=== PATIENT | female | born 2000 | race Caucasian/White ===

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

== ENCOUNTER → 2021-02-27 | Outpatient (CLI) | payer OTHER ==
[2021-02-27 18:36] LABS: African American GFR (CKD) 149.6 (60.0-200.0); Albumin 4.3 g/dL (3.8-4.9); Albumin/Globulin Ratio 1.57 (1.60-3.17); Anion Gap 13.2 mmol/L (4.00-12.00); BUN/Creat Ratio 27.64 Ratio (12.00-20.00); Blood Urea Nitrogen 17.8 mg/dL (9.0-27.0); Calcium 9.4 mg/dL (8.7-10.3); Carbon Dioxide 19.4 mmol/L (21.6-31.8); Estradiol 44.2 pg/mL; Follicle Stimulating Hormone 4.1 mIU/mL; Globulin 2.8 g/dL (1.6-3.3); Non-African American GFR(CKD) 129.1 (60.0-200.0); Potassium 4.1 mmol/L (3.5-5.5); Prolactin 24.1 ng/mL (2.800-29.200); Total Bilirubin 0.2 mg/dL (0.30-1.20); Total Protein 7.1 g/dL (6.2-8.2)
[2021-03-02 12:56] LABS: ACTH 26.9 pg/mL (0.00-45.99)
== END | disposition home or self-care (01) ==
LOC: LABWHC1 08:46
DX: E03.9 Hypothyroidism, unspecified (principal); E27.40 Unspecified adrenocortical insufficiency
CPT/HCPCS: 36415; 80053; 82024; 82533; 82670; 83001; 83002; 84146; 84305; 84432; 84443; 86376

== ENCOUNTER 2021-03-13 21:25 | Observation (INO) | payer OTHER ==
--- NOTE | 2021-03-13 22:44 | ED ---
Chest Pain HPI - General Chief Complaint: Chest Pain Stated Complaint: Chest pain,SOB Time Seen by Provider: 03/13/21 22:42 Source: patient, RN notes reviewed, old records reviewed Mode of arrival: wheelchair Limitations: no limitations - History of Present Illness Initial Comments: This is a 20-year-old female to the emergency room today. Patient felt near syncopal palpitations earlier in the day like her heart rate was dropping low after having episodes of it being high. 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 Patient is otherwise no new medications recent travel history sick contacts no fevers. No other. Symptoms today MD Complaint: chest pain (Palpitations), other (Elevated heart rate as well as low heart rate) -: hour(s) Onset: during rest Pain Location: substernal Severity scale (1-10): 3 Consistency: intermittent Improves With: nothing Worsens With: nothing Anginal Symptoms: dyspnea Other Symptoms: palpitations Treatments Prior to Arrival: none - Related Data Home Medications Medication Instructions Recorded Confirmed No Known Home Medications 03/13/21 03/13/21 Allergies Allergy/AdvReac Type Severity Reaction Status Date / Time No Known Allergies Allergy Verified 03/13/21 23:17 Review of Systems ROS Statement: Those systems with pertinent positive or pertinent negative responses have been documented in the HPI. ROS Other: All systems not noted in ROS Statement are negative. EKG Findings - EKG Comments: EKG Findings:: EKG is sinus 79 NH 146 QRS 84 QTc 428 Past Medical History Past Medical History: No Reported History Additional Past Medical History / Comment(s): Covid 08/10 History of Any Multi-Drug Resistant Organisms: None Reported Past Surgical History: Tonsillectomy Additional Past Surgical History / Comment(s): lymph node removed Past Psychological History: No Psychological Hx Reported Smoking Status: Never smoker Past Alcohol Use History: None Reported Past Drug Use History: None Reported General Exam Limitations: no limitations General appearance: alert, in no apparent distress Head exam: Present: atraumatic, normocephalic, normal inspection Eye exam: Present: normal appearance, PERRL, EOMI. Absent: scleral icterus, conjunctival injection, periorbital swelling ENT exam: Present: normal exam, mucous membranes moist Neck exam: Present: normal inspection. Absent: tenderness, meningismus, lymphadenopathy Respiratory exam: Present: normal lung sounds bilaterally. Absent: respiratory distress, wheezes, rales, rhonchi, stridor Cardiovascular Exam: Present: bradycardia, tachycardia, irregular rhythm, normal heart sounds. Absent: systolic murmur, diastolic murmur, rubs, gallop, clicks GI/Abdominal exam: Present: soft, normal bowel sounds. Absent: distended, tenderness, guarding, rebound, rigid Extremities exam: Present: normal inspection, full ROM, normal capillary refill. Absent: tenderness, pedal edema, joint swelling, calf tenderness Back exam: Present: normal inspection Neurological exam: Present: alert, oriented X3, CN II-XII intact Psychiatric exam: Present: normal affect, normal mood Skin exam: Present: warm, dry, intact, normal color. Absent: rash Course Vital Signs 03/13/21 03/13/21 21:29 23:00 Temperature 98.8 F Pulse Rate 112 H 88 Respiratory 18 22 Rate Blood Pressure 126/88 124/74 O2 Sat by Pulse 100 97 Oximetry - Reevaluation(s) Reevaluation #1: 03/14/21 00:49 Medical record is reviewed Reevaluation #2: 03/14/21 00:49 patient currently showing PVCs every other beat. Resting comfortably Reevaluation #3: 03/14/21 00:49 Patient informed results and questions answered Reevaluation #4: 03/14/21 00:49 Patient's in no acute distress - Consultations Consultation #1: Spoke with Dr. Birch who agrees to admit this patient Chest Pain MDM - MDM 20-year-old female to the emergency department today. Patient presents today for evaluation regards to arrhythmia palpitations. Patient has episodes of tachycardia as well as bradycardia here in the ER from over 100 to less than 50. Currently patient is having PVCs every other beat and symptomatic. Patient be admitted for cardiology evaluation Disposition Clinical Impression: Atypical chest pain, PVC (premature ventricular contraction), Near syncope, Palpitations, Tachycardia, Bradycardia Disposition: ADMITTED IP TO THIS HOSP Condition: Good Is patient prescribed a controlled substance at d/c from ED?: No Referrals: Sky Birch MD [Primary Care Provider] - 1-2 days
--- NOTE | 2021-03-13 23:11 | XR ---
EXAMINATION TYPE: XR chest 1V portable DATE OF EXAM: 03/13/2021 COMPARISON: 12/28/2020 HISTORY: Short of breath TECHNIQUE: FINDINGS: Heart and mediastinum are normal. Lungs are clear. Diaphragm is normal. Bony thorax is inta ct. IMPRESSION: Normal chest. No change
[2021-03-13] MEDS ORDERED: SODIUM CHLORIDE 0.9% 1,000 ML IV STA (23:19)
[2021-03-13 23:43] LABS: Basophils # (A) 0.1 k/uL (0-0.2); Basophils % (A) 0 %; Eosinophils # (A) 0.1 k/uL (0-0.7); Eosinophils % (A) 1 %; HCT 41.6 % (34.0-46.0); Lymphocytes # (A) 3.9 k/uL (1.0-4.8); Lymphocytes % (A) 34 %; MCH 27.9 pg (25.0-35.0); MCHC 33.7 g/dL (31.0-37.0); MCV 82.9 fL (80.0-100.0); Mean Platelet Volume 7.1; Monocytes # (A) 0.4 k/uL (0-1.0); Monocytes % (A) 3 %; Neutrophils # (A) 6.8 k/uL (1.3-7.7); Neutrophils % (A) 60 %; Platelet Count 376 k/uL (150-450); RBC 5.02 m/uL (3.80-5.40); RDW 13.4 % (11.5-15.5); WBC 11.4 k/uL (4.0-11.0)
[2021-03-14 00:06] LABS: ALT 17 U/L (4-34); AST 22 U/L (14-36); African American GFR (CKD) >90 (>60 ml/min/1.73 sqM); Albumin 4.4 g/dL (3.5-5.0); Alkaline Phosphatase 46 U/L (38-126); Anion Gap 10 mmol/L; Blood Urea Nitrogen 17 mg/dL (7-17); Calcium 9.8 mg/dL (8.4-10.2); Carbon Dioxide 23 mmol/L (22-30); Chloride 104 mmol/L (98-107); Glucose 93 mg/dL (74-99); Magnesium 2.1 mg/dL (1.6-2.3); Non-African American GFR(CKD) >90 (>60 ml/min/1.73 sqM); Potassium 4.2 mmol/L (3.5-5.1); Sodium 137 mmol/L (137-145); Total Bilirubin 0.2 mg/dL (0.2-1.3); Total Protein 7.6 g/dL (6.3-8.2)
[2021-03-14 00:09] LABS: INR 1.1 (<1.2)
[2021-03-14 00:10] LABS: Partial Thromboplastin Time 25.2 sec (22.0-30.0); Prothrombin Time 11.7 sec (9.0-12.0)
[2021-03-14 00:21] LABS: T4, Free (Free Thyroxine) 0.89 ng/dL (0.78-2.19)
[2021-03-14] MEDS ORDERED: SODIUM CHLORIDE 0.9% 1,000 ML IV SCH (00:45)
[2021-03-14] MEDS ORDERED: NITROGLYCERIN SL TABS 0.4 MG TAB SUBLINGUAL PRN (00:45)
[2021-03-14 09:33] VITALS: BP 108/72; PULSE 49; RESP 16; TEMP 98.1
--- NOTE | 2021-03-14 10:18 | P.CRDCN ---
History of Present Illness Consult date: 03/14/21 Chief complaint: Palpitation History of present illness: This is a pleasant 20-year-old female patient was tach most recently was James thyroiditis presented to the emergency department complaining of intermittent episodes of palpitation. The patient stated that for the last 24 hours only she has been experiencing intermittent episodes of palpitation without associated symptoms of dizziness or lightheadedness or any presyncope or syncope. No symptoms of chest pain and no symptoms of chest discomfort. She never had these palpitations before. She has no family history of sudden cardiac arrest or syncope. The patient was diagnosed recently with James thyroiditis and she was told no need to be on any thyroid replacement therapy. As a matter of fact her TSH is elevated and hurts free T4 seems to be within normal limits. 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 The EKG showed sinus rhythm with ventricular bigeminy which seems to be frequent. She stated that normally she keeps herself hydrated and she does not drink a lot of caffeine. The rest of her workup including chest x-ray came in to be unremarkable. 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 History of Any Multi-Drug Resistant Organisms: None Reported Past Surgical History: Tonsillectomy Additional Past Surgical History / Comment(s): lymph node removed Past Anesthesia/Blood Transfusion Reactions: No Reported Reaction Past Psychological History: No Psychological Hx Reported Smoking Status: Never smoker Past Alcohol Use History: None Reported Past Drug Use History: None Reported Medications and Allergies Home Medications Medication Instructions Recorded Confirmed Type No Known Home Medications 03/13/21 03/13/21 History Allergies Allergy/AdvReac Type Severity Reaction Status Date / Time No Known Allergies Allergy Verified 03/13/21 23:17 Physical Exam Vitals: Vital Signs Temp Pulse Pulse Resp BP BP Pulse Ox 03/14/21 07:00 98.1 F 49 L 16 108/72 98 03/14/21 02:00 22 03/14/21 00:51 87 22 128/74 98 03/13/21 23:00 88 22 124/74 97 10/22/21 21:29 98.8 F 112 H 18 126/88 100 Intake and Output 03/13/21 03/14/21 03/14/21 22:59 06:59 14:59 Other: Voiding Method Toilet Toilet # Voids 1 Weight 111.584 kg 111.584 kg - Constitutional General appearance: no acute distress - Respiratory Respiratory: bilateral: CTA - Cardiovascular Rhythm: regular Heart sounds: normal: S1, S2 Results 03/13/21 23:25 03/13/21 23:25 Cardiac Enzymes 03/13/21 03/13/21 03/14/21 Range/Units 23:25 23:25 03:02 AST 22 (14-36) U/L Troponin I <0.012 <0.012 (0.000-0.034) ng/mL 03/14/21 Range/Units 05:41 AST (14-36) U/L Troponin I <0.012 (0.000-0.034) ng/mL Coagulation 03/13/21 Range/Units 23:25 PT 11.7 (9.0-12.0) sec APTT 25.2 (22.0-30.0) sec CBC 03/13/21 Range/Units 23:25 WBC 11.4 H (4.0-11.0) k/uL RBC 5.02 (3.80-5.40) m/uL Hgb 14.0 (11.4-16.0) gm/dL Hct 41.6 (34.0-46.0) % Plt Count 376 (150-450) k/uL Comprehensive Metabolic Panel 03/13/21 Range/Units 23:25 Sodium 137 (137-145) mmol/L Potassium 4.2 (3.5-5.1) mmol/L Chloride 104 (98-107) mmol/L Carbon Dioxide 23 (22-30) mmol/L BUN 17 (7-17) mg/dL Creatinine 0.67 (0.52-1.04) mg/dL Glucose 93 (74-99) mg/dL Calcium 9.8 (8.4-10.2) mg/dL AST 22 (14-36) U/L ALT 17 (4-34) U/L Alkaline Phosphatase 46 (38-126) U/L Total Protein 7.6 (6.3-8.2) g/dL Albumin 4.4 (3.5-5.0) g/dL Current Medications Generic Name Dose Route Start Last Admin Trade Name Freq PRN Reason Stop Dose Admin Sodium Chloride 1,000 mls @ 20 mls/hr 03/14/21 00:45 03/14/21 02:16 Saline 0.9% IV Not Given .Q24H JOSE Nitroglycerin 0.4 mg 03/14/21 00:45 Nitroglycerin Sl Tabs 0.4 Mg Tab SUBLINGUAL Q5M PRN Chest Pain Intake and Output 03/13/21 03/14/21 03/14/21 22:59 06:59 14:59 Other: Voiding Method Toilet Toilet # Voids 1 Weight 111.584 kg 111.584 kg 03/13/21 23:25 03/13/21 23:25 Assessment and Plan Assessment: Assessment #1 James thyroiditis #2 ventricular bigeminy Plan #1 the echo was reviewed and showed normal biventricular function without any evidence of right ventricular dilation #2 the patient would like to be discharged home. #3 she potentially can be discharged home on event monitor #4 follow-up with the patient as an outpatient to assess the frequency of the palpitation
--- NOTE | 2021-03-14 14:14 | HP ---
HISTORY AND PHYSICAL CHIEF COMPLAINT: Bradycardia and chest discomfort with weakness. HISTORY OF PRESENT ILLNESS: This is the first known admission for this 20-year-old white female. She has noticed that her heart was slowing down, then it would speed up. She had slight discomfort in the epigastric area, but no cough, hemoptysis, orthopnea, PND, etc. She came to the emergency room, where her pulse was dropping to around 40 with sinus rhythm and then jumping up to over 100. She also had the episodes of bigeminal PVCs. There is no chest pain. She has never had a problem like this before. She has never had a murmur, rheumatic fever, syncope, orthostatic dizziness, etc. She has had no pleuritic pain, cough, hemoptysis, swelling in either leg, etc. She has recently been diagnosed with James's thyroiditis. She has never had any history of any heart problems such as myocarditis, pericarditis, etc. REVIEW OF SYSTEMS: She has had no focal neurologic deficits, trouble with the vision or the hearing, history otherwise. She has never had a murmur. She has not had abdominal pain, nausea, melena, hematochezia, renal disease, hematuria, dysuria, diabetes, etc. Past medical history, family history, and personal and social histories are all essentially unremarkable otherwise. She is currently on vitamin D, ibuprofen, Flonase and ProAir. She is a nonsmoker and drinker. PHYSICAL EXAMINATION: Blood pressure is 128/70 with a pulse of 64 and regular. Respirations were 15. She is afebrile. In general she appears to be uncomfortable and in no acute distress. Skin color is normal. Skin is warm and dry. Lymph nodes are not enlarged. Head, ears, eyes, nose, mouth and throat were normal. There were no carotid bruits. Neck veins are not distended. The chest is clear to auscultation and percussion. The cardiac exam demonstrated normal sinus rhythm with PVCs. The abdomen is soft and nontender. Extremities are normal. Neurologically she is intact. She is admitted to the hospital with diagnoses: 1. Tachy-bernie syndrome with frequent PVCs. 2. James's thyroiditis. PLAN: 1. Bedrest. 2. IV fluids. 3. Echocardiogram. 4. Cardiology consult. 5. Free T4. MMODL / IJN: [id number] /
--- NOTE | 2021-03-15 13:02 | DS ---
DISCHARGE SUMMARY CHIEF COMPLAINT: Slow and then fast heart rate. HISTORY OF PRESENT ILLNESS AND PHYSICAL EXAMINATION: Details of this lady's history and physical can be found in the initial workup. LABORATORY STUDIES: While she was in the hospital she had laboratory studies, details of which can be found in the laboratory section of her chart. COURSE IN THE HOSPITAL: After admission she was placed on bedrest and started on intravenous fluids and telemetry. She had no significant symptoms. Her pulse had gone down as low as 40 beats per minute and up as high as 120. She also had intermittent PVCs and occasionally they were bigeminal. She was doing well and had no further symptoms and Cardiology felt that she could be discharged. She will be seen as an outpatient and will have an event monitor applied. FINAL DIAGNOSIS: 1. Tachy-bernie syndrome. 2. Frequent PVCs with bigeminy. 3. James's thyroiditis. OPERATIONS: None. CONSULTATION: Cardiology. She is improved. MMKELECHIL / JOSE ARMANDON: [id number] /
== END 2021-03-14 15:27 | disposition home or self-care (01) ==
LOC: EC 21:25 → 6NMEDSUR 03-14 00:45
PROVIDERS: ADMIT Family Medicine; ATTEND Family Medicine
DX: I49.5 Sick sinus syndrome (principal); E06.3 Autoimmune thyroiditis; Z20.822 Contact with and (suspected) exposure to COVID-19; Z86.16 Personal history of COVID-19
CPT/HCPCS: 99285; 36415; 93005; 93306; 85379 ×2; 84439; 83880; 80053; 83735; 84100; 84443; 84484 ×2; 85025; 85610; 85730; 87635; 71045; G0378

== ENCOUNTER → 2021-04-23 | Outpatient (CLI) | payer OTHER | END | disposition home or self-care (01) | LOC: LABWHC1 16:05 | PROVIDERS: ATTEND Obstetrics & Gynecology | DX: O20.0 Threatened abortion (principal) | CPT/HCPCS: 36415; 84702; 86850; 86900; 86901 ==

== ENCOUNTER → 2021-04-27 | Outpatient (CLI) | payer BC, OTHER | END | disposition home or self-care (01) | LOC: LABWHC1 12:41 | PROVIDERS: ATTEND Obstetrics & Gynecology | DX: O20.0 Threatened abortion (principal); Z3A.00 Weeks of gestation of pregnancy not specified | CPT/HCPCS: 36415; 84702; 86850; 86900; 86901 ==

== ENCOUNTER 2021-08-23 21:25 | Outpatient (CLI) | payer BC, OTHER ==
[2021-08-23 22:18] VITALS: BP 127/93; PULSE 86; RESP 16; TEMP 97.6
--- NOTE | 2021-08-24 07:22 | P.MSEPDOC ---
Presenting Problems - Arrival Data Date of Arrival on Unit: 08/23/21 Time of Arrival on Unit: 21:25 Mode of Transport: Ambulatory - Complaint OB-Reason for Admission/Chief Complaint: Vaginal Bleeding Medical History - Information : 1 Para: 0 Term: 0 : 0 Abortions: Spontaneous or Elective: 0 Number of Living Children: 0 - Gestational Age Gestational Age by JANNA (wks/days): 22 Weeks and 5 Days Review of Systems - Review of Systems Constitutional: No problems Breast: No problems ENT: No problems Cardiovascular: No problems Respiratory: No problems Gastrointestinal: No problems Genitourinary: No problems Musculoskeletal: No problems Neurological: No problems Skin: No problems Vital Signs - Temperature Temperature: 97.6 F Temperature Source: Oral - Pulse Pulse Oximetery Pulse Rate: 86 Pulse Assessment Method: Pulse Oximetry - Respirations Respiratory Rate: 16 Oxygen Delivery Method: Room Air O2 Sat by Pulse Oximetry: 98 - Blood Pressure Right Arm Blood Pressure: 127/93 Blood Pressure Mean: 104 Blood Pressure Source: Automatic Cuff Medical Screen Scoring - Assessment - Baby A Baseline FHR: 145-155 Physician Notification - Physician Notified Physician Notified Date: 08/23/21 Physician Notified Time: 21:54 Physician: Steve Willis New Order Received: Yes - Notification Comment Comment: d/c home Maternal Triage Index - Maternal Triage Index Presenting for scheduled procedure w/no complaint: No - Stat/Priority 1 Stat Priority 1: No - Urgent/Priority 2 Urgent Priority 2: No - Prompt/Priority 3 Prompt Priority 3: No - Non-Urgent/Priority 4 Non-Urgent Priority 4: Yes Criteria Met for Priority 4: pt states she had bleeding after BM. resolved. dr willis d/c home with reassurance that probably hemorrhoids. no intercourse till f/u with dr laurent on 08/28/21 Disposition - Disposition OB Disposition: Discharge to home Discharge Date: 08/23/21 Discharge Time: 22:02 I agree with the RN Medical Screening Exam: Yes Case reviewed; plan agreed upon as documented in EMR&OBIX.: Yes Diagnosis: SPOTTING COMPLICATING , SECOND TRIMESTER (Patient presents to labor and delivery with complaints of spotting after having a bowel movement. heart tones are auscultated. Clinical history is suggestive of most likely bleeding hemorrhoid. Is no active bleeding at this time. Patient was discharged follow up with Dr. Laurent for evaluation as an outpatient.)
== END 2021-08-23 22:12 | disposition home or self-care (01) ==
LOC: FBPOP 21:25
PROVIDERS: ATTEND Obstetrics & Gynecology
DX: O26.852 Spotting complicating pregnancy, second trimester (principal); Z3A.22 22 weeks gestation of pregnancy
CPT/HCPCS: 99213

== ENCOUNTER 2021-10-22 14:19 | Inpatient (IN) | payer BC, OTHER ==
[2021-10-22 15:54] LABS: African American GFR (CKD) >90 (>60 ml/min/1.73 sqM); Non-African American GFR(CKD) >90 (>60 ml/min/1.73 sqM)
[2021-10-22 15:55] LABS: Uric Acid 6.8 mg/dL (3.7-7.4)
[2021-10-22 15:58] LABS: Appearance,Urine Cloudy (Clear); Bilirubin,Urine Negative (Negative); Blood,Urine Negative (Negative); Calcium Oxalate Crystals,Urine Moderate /hpf; Color,Urine Yellow; Glucose,Urine (UA) Negative (Negative); Ketones,Urine Negative (Negative); Leukocyte Esterase,Urine Moderate (Negative); Mucus,Urine Moderate /hpf; Nitrite,Urine Negative (Negative); PH, Urine 6.5 (5.0-8.0); Protein,Urine 1+ (Negative); RBC,Urine 1 /hpf (0-5); Specific Gravity,Urine 1.028 (1.001-1.035); Squamous Epithelial Cell,Urine 4 /hpf (0-4); Urobilinogen,Urine <2.0 mg/dL (<2.0); WBC,Urine 3 /hpf (0-5)
[2021-10-22 16:06] LABS: Creatinine,Urine Random 202.3 mg/dL; Protein/Creatinine Ratio,Urine 0.366
[2021-10-22 17:13] LABS: Basophils % (A) 0 %; Eosinophils # (A) 0.1 k/uL (0-0.7); Eosinophils % (A) 1 %; HCT 35.7 % (34.0-46.0); HGB 12.1 gm/dL (11.4-16.0); Lymphocytes # (A) 1.9 k/uL (1.0-4.8); Lymphocytes % (A) 21 %; MCH 29.4 pg (25.0-35.0); MCHC 33.9 g/dL (31.0-37.0); MCV 86.7 fL (80.0-100.0); Monocytes # (A) 0.2 k/uL (0-1.0); Monocytes % (A) 3 %; Neutrophils # (A) 6.8 k/uL (1.3-7.7); Neutrophils % (A) 75 %; Platelet Count 294 k/uL (150-450); RBC 4.12 m/uL (3.80-5.40); RDW 14.7 % (11.5-15.5); WBC 9.1 k/uL (4.0-11.0)
--- NOTE | 2021-10-22 18:22 | P.HPOB ---
History of Present Illness H&P Date: 10/22/21 Chief Complaint: Swelling and elevated blood pressure. This patient is a pleasant 21-year-old 1 para 0 female estimated date of confinement 12/22/2021 estimated gestational age 31-2/7 weeks who presents to labor and delivery after calling the office with complaints of swelling of her hands and feet. Patient did check her blood pressure at home and it was 160/80. She rechecked it was 151/76. Patient contacted the nurse in my office and she was instructed to come to labor and delivery for evaluation of preeclampsia. Patient's care is per Dr. 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 Patient has been seen by maternal medicine and has been following with them as well. Patient denies headache at this time. She denies epigastric pain. Initial blood pressure on admission here was 169/79 however serial blood pressures shoulder be anywhere from 122 -150s over 50s - 70s. Laboratory evaluation shows normal liver function tests. Uric acid was 6.8. She did have 1+ protein on a random urine. heart tones are reassuring. 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 History of Any Multi-Drug Resistant Organisms: None Reported Past Surgical History: Tonsillectomy Additional Past Surgical History / Comment(s): lymph node removed Past Anesthesia/Blood Transfusion Reactions: No Reported Reaction Past Psychological History: No Psychological Hx Reported Smoking Status: Never smoker Past Alcohol Use History: None Reported Past Drug Use History: None Reported Medications and Allergies Home Medications Medication Instructions Recorded Confirmed Type Enoxaparin [Lovenox] 1 injection SQ DAILY 08/23/21 10/22/21 History Pnv No.95/Ferrous Fum/Folic AC 1 tab PO DAILY 08/23/21 10/22/21 History [ Multivitamin Tablet] Levothyroxine Sodium [Synthroid] 200 mcg PO DAILY 10/22/21 10/22/21 History Allergies Allergy/AdvReac Type Severity Reaction Status Date / Time No Known Allergies Allergy Verified 10/22/21 14:41 Exam Intake and Output 10/22/21 10/22/21 10/22/21 06:59 14:59 22:59 Other: Weight 127.006 kg - OBG Physical Exam Abdomen: bowel sounds normal, no diffuse tenderness, no bruit present, no guarding noted, no hepatomegaly, no splenomegaly, no mass Vulva: both: normal Vagina: no discharge Uterus: enlarged Results Result Diagrams: 10/22/21 15:13 10/22/21 15:13 Abnormal Lab Results - Last 24 Hours (Table) 10/22/21 10/22/21 Range/Units 15:00 15:13 Creatinine 0.50 L (0.52-1.04) mg/dL Urine Appearance Cloudy H (Clear) Urine Protein 1+ H (Negative) Ur Leukocyte Esterase Moderate H (Negative) Calcium Oxalate Crystal Moderate H (None) /hpf Urine Mucus Moderate H (None) /hpf Assessment and Plan Assessment: This is a pleasant 21-year-old 1 para 0 female 31-2/7 weeks gestation with gestational hypertension. She does have 1+ protein on a urine specimen and her uric acid is trending upward. I explained to her that at this time her diagnoses gestational hypertension however it is best to admit her for close observation and continued observation for preeclampsia. I am going to give her a dose of Celestone. I'm going to repeat her blood work in the morning ultrasound this evening. We will also continue her Lovenox as she has been taking at home. She understands if that I have concerns that she is developing significant blood pressure elevations or severe preeclampsia she will need to be transferred to a tertiary facility due to her gestational age. I discussed the treatment plan with the patient and her family and they understand reasoning for admission and observation and all questions are answered. (1) 31 to 32 weeks gestation of Current Visit: Yes Status: Acute Code(s): [id number] - SNOMED Code(s): 724768184 (2) Gestational hypertension Current Visit: Yes Status: Acute Code(s): O13.9 - GESTATIONAL HTN W/O SIGNIFICANT PROTEINURIA, UNSP TRIMESTER SNOMED Code(s): 87977252 (3) Factor V Leiden mutation Current Visit: Yes Status: Acute Code(s): D68.51 - ACTIVATED PROTEIN C RESISTANCE SNOMED Code(s): 545484580
[2021-10-22] MEDS: BETAMET ACET-BETAMETH SOD PHOS 6 MG/ML MDV IM SCH (18:28)
--- NOTE | 2021-10-22 19:24 | US ---
EXAMINATION TYPE: US OB >= 14 wk fetus DATE OF EXAM: 10/22/2021 COMPARISON: None CLINICAL HISTORY: Preeclampsia, Patient is 31 weeks and presents with high blood pressure. TECHNIQUE: Transabdominal (TA) GESTATIONAL AGE / DATING Physician Established: (31 weeks/2 days) EDC: 12/22/21 Dates by First Scan: No previous this is first scan here Dates by Current Scan: (32 weeks/1 days) EDC: 12/16/21 SURVEY IUP: Single PLACENTA: Anterior PREVIA: No Previa NACHO: 14.3 cm Normal CERVICAL LENGTH (transabdominal: norm > 3.0cm): 3.7 cm BIOMETRY PRESENTATION: Vertex LIE: Oblique BPD: 8.05 cm 32 weeks / 3 days HC: 29.66 cm 32 weeks / 6 days AC: 27.72 cm 31 weeks / 6 days FL: 6.04 cm 31 weeks / 3 days ESTIMATED WEIGHT IN GRAMS: 1843 grams ESTIMATED WEIGHT IN LBS/OZ: 4 lbs. 1 oz. WEIGHT PERCENTAGE BASED ON ESTABLISHED DATES: 56% HC/AC: 1.07 Normal FL/AC: 22% Normal HEART RATE: 142 bpm RHYTHM: Normal MATERNAL WALL MEASUREMENT: 5.0 cm from skin to anterior uterine wall (if exam limited due to body hab itus). IMPRESSION: 1. Single live intrauterine with calculated ultrasound age of 32 weeks and 1 day, .Addition al information as described above.
[2021-10-22 19:54] VITALS: RESP 16
[2021-10-22] MEDS: LABETALOL 100 MG TAB PO SCH (19:58)
[2021-10-22] MEDS ORDERED: ENOXAPARIN 40 MG/0.4 ML SYRINGE SQ SCH (21:00)
[2021-10-23] MEDS ORDERED: LEVOTHYROXINE 100 MCG TAB PO SCH (06:30)
[2021-10-23 06:43] LABS: Basophils % (A) 0 %; Eosinophils % (A) 0 %; HCT 37.8 % (34.0-46.0); HGB 12.7 gm/dL (11.4-16.0); Lymphocytes # (A) 1.3 k/uL (1.0-4.8); Lymphocytes % (A) 11 %; MCH 29.1 pg (25.0-35.0); MCHC 33.5 g/dL (31.0-37.0); MCV 86.7 fL (80.0-100.0); Mean Platelet Volume 8.6; Monocytes # (A) 0.2 k/uL (0-1.0); Monocytes % (A) 2 %; Neutrophils # (A) 10.4 k/uL (1.3-7.7); Neutrophils % (A) 87 %; Platelet Count 257 k/uL (150-450); RBC 4.36 m/uL (3.80-5.40); RDW 13.8 % (11.5-15.5); WBC 11.9 k/uL (4.0-11.0)
--- NOTE | 2021-10-23 06:48 | P.PN ---
Progress Note - Text Progress Note Date: 10/23/21 Patient is resting overnight without new symptoms. I did start her on labetalol 100 mg by mouth twice a day and blood pressures are markedly improved. Repeat labs are pending. 24-hour urine is in process. Ultrasound shows normal growth and no abnormalities. Plan today is to continue watching her blood pressure and continue 24-hour urine. We will repeat her Celestone later tonight. Estimated discharge either later today or tomorrow morning if she remains without blood pressure problems.
[2021-10-23 06:54] LABS: ALT 20 U/L (4-34); AST 23 U/L (14-36); African American GFR (CKD) >90 (>60 ml/min/1.73 sqM); Blood Urea Nitrogen 10 mg/dL (7-17); Non-African American GFR(CKD) >90 (>60 ml/min/1.73 sqM)
[2021-10-23] MEDS: LABETALOL 100 MG TAB PO SCH ×2 (08:29→18:41)
[2021-10-23] MEDS ORDERED: PRENATAL VIT-IRON-FOLIC ACID 1 EACH TABLET PO SCH (09:00)
[2021-10-23] MEDS: BETAMET ACET-BETAMETH SOD PHOS 6 MG/ML MDV IM SCH (18:04)
[2021-10-23 18:07] VITALS: BP 122/59; PULSE 86; TEMP 98.6
--- NOTE | 2021-10-23 18:25 | P.PN ---
Progress Note - Text Progress Note Date: 10/23/21 Patient is reevaluated this evening. I did place her on Labetalol earlier today and her blood pressures have been very good throughout the day. Most recent blood pressure is 122/55. 24 urine is completed however will not be resulted probably for several hours the patient does wish to go home. She is asymptomatic states that her swelling is better. Repeat blood work shows normal liver tests. Uric acid remains elevated at 7.0. Patient is received 2 doses of Celestone. At this point I discussed the clinical diagnosis which is consistent with gestational hypertension. I do believe the patient is stable to be discharged home and followed closely in our office next week. I gave the p shandraient a order for blood work to do first thing Tuesday morning at the hospital and then she already has an appointment scheduled with Dr. Sanchez at 2:45 in the afternoon for a visit and nonstress test. She also has a follow-up visit scheduled with maternal medicine on . Patient is instructed to take her labetalol 100 mg by mouth twice a day, check her blood pressures at home if she has concerns and contact us if any changes. I also reviewed the signs and symptoms of preeclampsia and movement counts. Patient is comfortable with this treatment plan and appears to be quite compliant.
--- NOTE | 2021-10-23 18:30 | P.DS ---
Providers Date of admission: 10/22/21 17:54 Expected date of discharge: 10/23/21 Attending physician: Ira Sanchez Primary care physician: Stated None - Discharge Diagnosis(es) (1) 31 to 32 weeks gestation of Current Visit: Yes Status: Acute (2) Gestational hypertension Current Visit: Yes Status: Acute (3) Factor V Leiden mutation Current Visit: Yes Status: Acute Hospital Course: Please see dictated H&P and progress notes on this patient's admission. Brief summary this pleasant 21-year-old no para patient 31 and one sevenths weeks gestation admitted with hypertension. Evaluation is consistent with gestational hypertension without severe preeclampsia at this time. Patient was placed on labetalol 100 mg by mouth twice a day and blood pressures are much improved. A 24-hour urine was done which is pending at the time of this dictation. Patient is discharged home to repeat blood work on Tuesday in follow-up with Dr. Sanchez in the afternoon as scheduled. She also has an appointment with maternal medicine on . Patient Condition at Discharge: Good Plan - Discharge Summary New Discharge Prescriptions: New Labetalol [Trandate] 100 mg PO BID 30 Days #60 tab No Action Pnv No.95/Ferrous Fum/Folic AC [ Multivitamin Tablet] 1 tab PO DAILY Enoxaparin [Lovenox] 1 injection SQ DAILY Levothyroxine Sodium [Synthroid] 200 mcg PO DAILY Discharge Medication List Enoxaparin [Lovenox] 1 injection SQ DAILY 08/23/21 [History] Pnv No.95/Ferrous Fum/Folic AC [ Multivitamin Tablet] 1 tab PO DAILY 08/23/21 [History] Levothyroxine Sodium [Synthroid] 200 mcg PO DAILY 10/22/21 [History] Labetalol [Trandate] 100 mg PO BID 30 Days #60 tab 10/23/21 [Rx] Follow up Appointment(s)/Referral(s): Ira Sanchez DO [Doctor of Osteopathic Medicine] - 10/26/21 2:45 pm Patient Instructions/Handouts: Preeclampsia During (DC) Activity/Diet/Wound Care/Special Instructions: Activities as instructed. Please call if persistent headache, right quadrant pain, and/or elevated blood pressures as discussed. Continue movement counts. Please get repeat blood work Tuesday morning as instructed prior to your appointment Discharge Disposition: HOME SELF-CARE
[2021-10-23 18:51] LABS: Total Volume 24 Hour,Urine 800 mls (800-1800)
[2021-10-23 19:12] LABS: Total Protein 24 Hour,Urine 512 mg/24hr (42.0-225.0)
== END 2021-10-23 19:11 | disposition home or self-care (01) | DRG 832 ==
LOC: FBPOP 14:19 → 4FBP 17:54 → OBSVTOIN 18:02 → UNDODISOB 10-23 19:11
PROVIDERS: ADMIT Obstetrics & Gynecology; ATTEND Obstetrics & Gynecology
DX: O13.3 Gestational [pregnancy-induced] hypertension without significant proteinuria, third trimester (principal); O99.113 Other diseases of the blood and blood-forming organs and certain disorders involving the immune mechanism complicating pregnancy, third trimester; D68.2 Hereditary deficiency of other clotting factors; Z28.310 Unvaccinated for COVID-19; Z3A.31 31 weeks gestation of pregnancy; Z79.01 Long term (current) use of anticoagulants; Z79.890 Hormone replacement therapy; Z79.899 Other long term (current) drug therapy; Z86.16 Personal history of COVID-19; Z90.89 Acquired absence of other organs; Z98.890 Other specified postprocedural states
CPT/HCPCS: 36415; 59025; 76805; 81001; 81050; 82565; 82570; 83615; 84156; 84450; 84460; 84520; 84550; 85025; 99215

== ENCOUNTER 2021-10-25 13:39 | Outpatient (CLI) | payer OTHER ==
[2021-10-25] MEDS ORDERED: MAGNESIUM SULFATE GM 6 GM in SODIUM CHLORIDE 0.9% 100 ML IVPB ONE (14:08)
[2021-10-25] MEDS ORDERED: LABETALOL 5 MG/ML VIAL MDV IVP PRN ×3 (14:11)
[2021-10-25] MEDS ORDERED: hydrALAZINE HCL 20 MG/ML 1 ML VIAL IVP PRN (14:11)
[2021-10-25] MEDS ORDERED: LACTATED RINGERS 1,000 ML IV SCH (14:15)
[2021-10-25] MEDS ORDERED: MAGNESIUM SULFATE-WATER PMX 20 GM in WATER FOR INJECTION 1 500ML.BAG IV SCH (14:15)
[2021-10-25 14:31] LABS: ALT 29 U/L (4-34); AST 45 U/L (14-36); African American GFR (CKD) >90 (>60 ml/min/1.73 sqM); Blood Urea Nitrogen 12 mg/dL (7-17); LDH 563 U/L (313-618); Non-African American GFR(CKD) >90 (>60 ml/min/1.73 sqM); Uric Acid 7.1 mg/dL (3.7-7.4)
[2021-10-25 14:35] LABS: Basophils % (A) 0 %; Eosinophils # (A) 0.1 k/uL (0-0.7); Eosinophils % (A) 1 %; HCT 36.8 % (34.0-46.0); HGB 12.2 gm/dL (11.4-16.0); Lymphocytes # (A) 2.4 k/uL (1.0-4.8); Lymphocytes % (A) 18 %; MCH 28.9 pg (25.0-35.0); MCHC 33.1 g/dL (31.0-37.0); MCV 87.2 fL (80.0-100.0); Mean Platelet Volume 8.3; Monocytes # (A) 0.4 k/uL (0-1.0); Monocytes % (A) 3 %; Neutrophils # (A) 10.4 k/uL (1.3-7.7); Neutrophils % (A) 77 %; Partial Thromboplastin Time 23.4 sec (22.0-30.0); Platelet Count 286 k/uL (150-450); RBC 4.22 m/uL (3.80-5.40); RDW 14.9 % (11.5-15.5); WBC 13.6 k/uL (4.0-11.0)
[2021-10-25] MEDS ORDERED: ONDANSETRON 4 MG/2 ML VIAL IVP STA (14:56)
--- NOTE | 2021-10-25 14:57 | P.HPOB ---
History of Present Illness H&P Date: 10/25/21 Chief Complaint: Chest pain, hypertension This patient is a pleasant 21-year-old 1 para 0 female estimated date of confinement 12/22/2021 estimated gestational age 31-5/7 weeks gestation who presents to labor and delivery with complaints of elevated blood pressures at home and also some epigastric discomfort. Patient's history is such that I admitted her on October 22 for blood pressure elevations. Preeclampsia labs at that time were normal with the exception of a elevated uric acid of 7.0. Patient was admitted to the hospital and had a 24-hour urine which showed 512 mg of protein and also repeat labs which were stable. Patient was given 2 doses of Celestone at that time. Patient was treated with Labetalol 100 mg by mouth twice a day felt to be stable to follow up as an outpatient. Patient called me earlier today with complaints of epigastric pain. She states that her blood pressures were normal yesterday however this morning there were elevated. Patient is also noticed increased facial swelling since discharge. Repeat labs today show a mild elevation of her AST. heart tones are reassuring. 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 History of Any Multi-Drug Resistant Organisms: None Reported Past Surgical History: Tonsillectomy Additional Past Surgical History / Comment(s): lymph node removed Past Anesthesia/Blood Transfusion Reactions: No Reported Reaction Past Psychological History: No Psychological Hx Reported Smoking Status: Never smoker Past Alcohol Use History: None Reported Past Drug Use History: None Reported - Past Family History Father History Unknown: Yes Medications and Allergies Home Medications Medication Instructions Recorded Confirmed Type Enoxaparin [Lovenox] 1 injection SQ DAILY 08/23/21 10/22/21 History Pnv No.95/Ferrous Fum/Folic AC 1 tab PO DAILY 08/23/21 10/22/21 History [ Multivitamin Tablet] Levothyroxine Sodium [Synthroid] 200 mcg PO DAILY 10/22/21 10/22/21 History Labetalol [Trandate] 100 mg PO BID 30 Days #60 tab 10/23/21 Rx Allergies Allergy/AdvReac Type Severity Reaction Status Date / Time No Known Allergies Allergy Verified 10/22/21 14:41 Exam Intake and Output 10/24/21 10/25/21 10/25/21 22:59 06:59 14:59 Other: Weight 127.006 kg Results Result Diagrams: 10/25/21 14:19 10/25/21 14:19 Abnormal Lab Results - Last 24 Hours (Table) 10/25/21 10/25/21 Range/Units 14:19 14:19 WBC 13.6 H (4.0-11.0) k/uL Neutrophils # 10.4 H (1.3-7.7) k/uL AST 45 H (14-36) U/L Assessment and Plan Assessment: This is a pleasant 21-year-old 1 para 0 female 31-5/7 weeks' gestation with clinical features consistent with severe preeclampsia. She now has an elevation of her liver function tests and significant blood pressure elevations. Patient has received Celestone and it is my impression that she may require delivery in the near future. For this reason, patient is going to be transferred to a tertiary facility for care and evaluation by maternal medicine. I contacted the physician at [facility] and discussed the clinical situation with them and they've agreed to transfer. Plan at this time is to treat her with IV labetalol and neuro-prophylaxis with magnesium sulfate. I discussed the treatment plan with the patient and her family near agreeable to transfer. (1) Severe pre-eclampsia Current Visit: Yes Status: Acute Code(s): O14.10 - SEVERE PRE-ECLAMPSIA, UNSPECIFIED TRIMESTER SNOMED Code(s): 97814727 (2) 31 to 32 weeks gestation of Current Visit: No Status: Acute Code(s): NLY0915 - SNOMED Code(s): 920939815 (3) Factor V Leiden mutation Current Visit: No Status: Acute Code(s): D68.51 - ACTIVATED PROTEIN C RESISTANCE SNOMED Code(s): 656452173
--- NOTE | 2021-10-25 15:14 | P.DS ---
Providers Expected date of discharge: 10/25/21 Attending physician: Steve Willis Primary care physician: Stated None - Discharge Diagnosis(es) (1) Severe pre-eclampsia Current Visit: Yes Status: Acute (2) 31 to 32 weeks gestation of Current Visit: No Status: Acute (3) Factor V Leiden mutation Current Visit: No Status: Acute Hospital Course: Please see dictated H&P for intimate details of this patient's admission. Brief summary this 21-year-old 1 para 0 female 31-5/7 weeks gestation admitted to triage with complaints of epigastric discomfort elevated blood pressure. Patient previously been evaluated earlier this week for gestational hypertension and placed on oral labetalol. Patient called today states that she was having chest discomfort and epigastric pain therefore represented to labor and delivery with elevated blood pressures. Patient is found to have significant blood pressure elevations requiring IV labetalol. Repeat blood work shows elevated AST. Due to the now diagnosis of severe preeclampsia I recommended patient be transferred to a tertiary facility in the event she needs delivery. Patient therefore was loaded on magnesium sulfate and transferred to [facility] labor and delivery. Patient was stable to time of discharge. Patient Condition at Discharge: Stable Plan - Discharge Summary New Discharge Prescriptions: No Action Pnv No.95/Ferrous Fum/Folic AC [ Multivitamin Tablet] 1 tab PO DAILY Enoxaparin [Lovenox] 1 injection SQ DAILY Levothyroxine Sodium [Synthroid] 200 mcg PO DAILY Labetalol [Trandate] 100 mg PO BID 30 Days #60 tab Discharge Medication List Enoxaparin [Lovenox] 1 injection SQ DAILY 08/23/21 [History] Pnv No.95/Ferrous Fum/Folic AC [ Multivitamin Tablet] 1 tab PO DAILY 08/23/21 [History] Levothyroxine Sodium [Synthroid] 200 mcg PO DAILY 10/22/21 [History] Labetalol [Trandate] 100 mg PO BID 30 Days #60 tab 10/23/21 [Rx] Discharge Disposition: OTHER INSTITUTION NOT DEFINED
[2021-10-25 15:49] VITALS: BP 177/95; PULSE 65; RESP 18; TEMP 97
--- NOTE | 2021-10-26 06:50 | P.MSEPDOC ---
Presenting Problems - Arrival Data Date of Arrival on Unit: 10/25/21 Time of Arrival on Unit: 13:39 Mode of Transport: Ambulatory - Complaint OB-Reason for Admission/Chief Complaint: Pain, PIH Comment: epigastric pain, bacl pain, vomiting, swelling in lips Medical History - Information : 1 Para: 0 Term: 0 : 0 Abortions: Spontaneous or Elective: 0 Number of Living Children: 0 - Gestational Age Gestational Age by JANNA (wks/days): 31 Weeks and 5 Days - History Comment: factor 5 on Lovenox, thyroid disease on synthroid Review of Systems - Review of Systems Constitutional: No problems Breast: No problems ENT: No problems Cardiovascular: No problems Respiratory: No problems Gastrointestinal: No problems Genitourinary: No problems Musculoskeletal: No problems Neurological: No problems Skin: No problems Vital Signs - Temperature Temperature: 97.0 F Temperature Source: Temporal Artery Scan - Pulse Right Sitting Brachial Pulse Rate: 65 Pulse Assessment Method: Automatic Cuff - Respirations Respiratory Rate: 18 Oxygen Delivery Method: Room Air O2 Sat by Pulse Oximetry: 99 - Blood Pressure Right Arm Sitting Blood Pressure: 177/95 Blood Pressure Mean: 122 Blood Pressure Source: Automatic Cuff Physician Notification - Physician Notified Physician Notified Date: 10/25/21 Physician Notified Time: 13:45 Physician: Steve Willis - Notification Comment Comment: Lazaro in dept. Orders received upon arrival Maternal Triage Index - Maternal Triage Index Presenting for scheduled procedure w/no complaint: No - Stat/Priority 1 Stat Priority 1: Yes Provider Notified: Steve Willis Provider Notified Time: 13:45 Criteria Met for Priority 1: yes Disposition - Disposition OB Disposition: Transfer to other dept./facility Transferred to:: [facility] Discharge Date: 10/25/21 Discharge Time: 15:27 I agree with the RN Medical Screening Exam: Yes Case reviewed; plan agreed upon as documented in EMR&OBIX.: Yes Diagnosis: SEVERE PRE-ECLAMPSIA, COMPLICATING THE PUERPERIUM (Please see dictated H&P on this patient's admission and transfer. Patient presented to labor and delivery with complaints of elevated blood pressures chest pain and epigastric pain patient was diagnosed with severe preeclampsia. Patient was stabilized with IV labetalol and given magnesium sulfate. She was transferred via EMS to [facility].)
== END 2021-10-25 15:25 | disposition other institution (70) ==
LOC: FBPOP 13:39
PROVIDERS: ATTEND Obstetrics & Gynecology
DX: O14.15 Severe pre-eclampsia, complicating the puerperium (principal); Z3A.32 32 weeks gestation of pregnancy
CPT/HCPCS: 59025; 96361; 96365; 96375; 96372; 36415; 82565; 83615; 84450; 84460; 84520; 84550; 85025; 85610; 85730; G0463; J2405; J3475 ×2; 99215

== ENCOUNTER 2021-11-10 16:57 | Inpatient (IN) | payer OTHER ==
[2021-11-10] MEDS ORDERED: SODIUM CHLORIDE 0.9% 1,000 ML IV STA (17:26)
[2021-11-10] MEDS ORDERED: SODIUM CHLORIDE 0.9% 2,000 ML IV STA (17:26)
[2021-11-10] MEDS ORDERED: ACETAMINOPHEN TAB 500 MG TAB PO STA (17:28)
[2021-11-10 18:03] LABS: Basophils % (A) 0 %; Eosinophils # (A) 0.1 k/uL (0-0.7); Eosinophils % (A) 1 %; HCT 48.8 % (34.0-46.0); Lymphocytes # (A) 0.5 k/uL (1.0-4.8); Lymphocytes % (A) 7 %; MCHC 33.6 g/dL (31.0-37.0); MCV 89.3 fL (80.0-100.0); Mean Platelet Volume 7.4; Monocytes # (A) 0.1 k/uL (0-1.0); Monocytes % (A) 2 %; Neutrophils # (A) 6.5 k/uL (1.3-7.7); Neutrophils % (A) 89 %; Platelet Count 342 k/uL (150-450); RBC 5.46 m/uL (3.80-5.40); RDW 15.2 % (11.5-15.5); WBC 7.3 k/uL (4.0-11.0)
[2021-11-10 18:05] LABS: HGB 16.4 gm/dL (11.4-16.0)
[2021-11-10 18:09] LABS: INR 1.2 (<1.2); Partial Thromboplastin Time 23.5 sec (22.0-30.0); Prothrombin Time 12.5 sec (9.0-12.0)
[2021-11-10 18:10] LABS: ALT 18 U/L (4-34); AST 31 U/L (14-36); African American GFR (CKD) >90 (>60 ml/min/1.73 sqM); Albumin 3.6 g/dL (3.5-5.0); Alkaline Phosphatase 103 U/L (38-126); Anion Gap 9 mmol/L; Blood Urea Nitrogen 13 mg/dL (7-17); Calcium 8.8 mg/dL (8.4-10.2); Carbon Dioxide 19 mmol/L (22-30); Chloride 108 mmol/L (98-107); Glucose 106 mg/dL (74-99); Lipase 117 U/L (23-300); Non-African American GFR(CKD) >90 (>60 ml/min/1.73 sqM); Potassium 3.8 mmol/L (3.5-5.1); Sodium 136 mmol/L (137-145); Total Bilirubin 0.7 mg/dL (0.2-1.3); Total Protein 7.1 g/dL (6.3-8.2)
--- NOTE | 2021-11-10 19:13 | CT ---
EXAMINATION TYPE: CT abdomen pelvis w con DATE OF EXAM: 11/10/2021 COMPARISON: None HISTORY: recent and internal bleeding and abdominal pain CT DLP: 2577.4 mGycm Automated exposure control for dose reduction was used. CONTRAST: Performed with IV Contrast, patient injected with 100 mL of Isovue 300. Images obtained from the diaphragm to the floor the pelvis with IV contrast. Lung bases are clear of infiltrate. No pleural effusion. Heart size is normal. No pericardial effusio n. Liver spleen stomach pancreas and gallbladder appear intact. The bile ducts are not dilated. There is no adrenal mass. Kidneys show satisfactory contrast opacification. There is no hydronephrosi s. Ureters are not dilated. There is no retroperitoneal adenopathy. There is large uterus from recent . Bladder distends smoothly. No inguinal hernia. There is a high attenuation somewhat round ed mass anterior to the uterine body and fundus that measures 10 cm and consistent with a hematoma. T here is also small amount of hematoma in the left and right paracolic gutter. No free air. There is s ome fat stranding in the omental fat over the anterior abdomen. Lumbar vertebrae have normal alignment. No compression fracture. Disc spaces are normal. Bony pelvis is intact. The hip joints are intact. IMPRESSION: Hematoma anterior to the uterus. Minimal hemorrhage in the left and right paracolic gutters.
[2021-11-10 20:27] LABS: Appearance,Urine Clear (Clear); Bilirubin,Urine Negative (Negative); Blood,Urine Moderate (Negative); Color,Urine Yellow; Glucose,Urine (UA) Negative (Negative); Ketones,Urine Negative (Negative); Leukocyte Esterase,Urine Moderate (Negative); Mucus,Urine Occasional /hpf; Nitrite,Urine Negative (Negative); PH, Urine 5.5 (5.0-8.0); Protein,Urine Trace (Negative); RBC,Urine 7 /hpf (0-5); Specific Gravity,Urine 1.031 (1.001-1.035); Squamous Epithelial Cell,Urine <1 /hpf (0-4); Urobilinogen,Urine <2.0 mg/dL (<2.0); WBC,Urine 13 /hpf (0-5)
[2021-11-10] MEDS ORDERED: AMPICILLIN-SULBACTAM 3 GM in SODIUM CHLORIDE 0.9% 100 ML IVPB STA (21:24)
[2021-11-10] MEDS ORDERED: GENTAMICIN 440 MG in SODIUM CHLORIDE 0.9% 100 ML IVPB ONE ×2 (21:24→22:00)
[2021-11-10] MEDS ORDERED: GENTAMICIN PER PHARMACY MISCELLANE PRN (21:38)
[2021-11-10] MEDS ORDERED: MORPHINE SULFATE 4 MG/ML SYRINGE IV PRN (23:05)
[2021-11-10] MEDS ORDERED: ONDANSETRON 4 MG/2 ML VIAL IVP PRN (23:05)
[2021-11-10] MEDS ORDERED: NALOXONE 0.4 MG/ML 1 ML VIAL IV PRN (23:05)
--- NOTE | 2021-11-10 23:05 | ED ---
General Adult HPI - General Chief complaint: Vaginal Bleeding Stated complaint: ABD/VAG Bleeding,Blood Thinners,Dr sent in Time Seen by Provider: 11/10/21 17:18 Source: patient, family Mode of arrival: wheelchair Limitations: no limitations - History of Present Illness Initial comments: this 21-year-old female presents with mother with the complaint of fever as well as lower abdominal pain. She states that she had a emergently approximately 12 days ago at [facility] in [place]. She apparently was transferred to this facility from our facility due to high risk problems with . She delivered at 32 weeks and apparently had helped syndrome or preeclampsia. She normally sees Dr. Sanchez from [facility] at our facility. Over the last several days, she has developed increased lower abdominal pain. She was seen at the other facility and told that she has a hematoma in her abdomen. She has not been on any antibiotics as of yet. She presents via EMS tachycardic and with a fever. She does admit to having occasional vaginal bleeding which is mostly dark with occasional clots. She denies any urinary symptoms. No other complaints or modifying factors. There is no cough or difficulty in breathing. - Related Data Home Medications Medication Instructions Recorded Confirmed Levothyroxine Sodium [Synthroid] 200 mcg PO DIRECTED 10/22/21 11/10/21 Heparin (Unknown Dose) 1 dose SQ DIRECTED 11/10/21 11/10/21 Ibuprofen [Motrin] 600 mg PO Q6HR PRN 11/10/21 11/10/21 Labetalol (Unknown Dose) 1 dose IM DIRECTED 11/10/21 11/10/21 Allergies Allergy/AdvReac Type Severity Reaction Status Date / Time No Known Allergies Allergy Verified 11/10/21 21:35 Review of Systems ROS Statement: Those systems with pertinent positive or pertinent negative responses have been documented in the HPI. ROS Other: All systems not noted in ROS Statement are negative. 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 VITAL SIGNS: Heart rate, blood pressure, respiratory rate reviewed as recorded in nurse's notes. EYES: Pupils are round and reactive. Extraocular movements are intact. No conjunctival / lid redness or swelling. ENT: No external evidence of injury, swelling, or ecchymosis. Airway is patent. Throat is clear. NECK: Nontender. No swelling or evidence of injury. No subcutaneous emphysema. Trachea is midline. No thyroid mass. HEART: Tachycardic rate. Good peripheral pulses. LUNGS/CHEST: Breath sounds clear and equal bilaterally. No rales, rhonchi, or wheezes. No ecchymosis, subcutaneous emphysema, or tenderness. ABDOMEN: Abdomen soft With moderate to significant tenderness mostly in the bilateral lower abdomen but slightly to the upper abdomen. No palpable masses or organomegaly. No peritoneal signs. No abdominal wall swelling or ecchymosis. EXTREMITIES: No extremity tenderness. Normal muscle tone and function. No thoracolumbar tenderness. NEUROLOGIC: Sensation is grossly intact. Cranial nerve exam reveals face is symmetrical, tongue is midline, speech is clear. SKIN: No abrasions or ecchymosis is noted. No induration or masses noted. Well-healing lower abdominal horizontal incision without any erythema or signs of infection. PSYCHIATRIC: Alert and oriented. Appropriate behavior and judgment. Limitations: no limitations Course Vital Signs 11/10/21 11/10/21 11/10/21 17:00 17:22 18:54 Temperature 102.3 F H 101.8 F H Pulse Rate 130 H 116 H 114 H Respiratory 18 20 18 Rate Blood Pressure 102/62 114/67 126/64 O2 Sat by Pulse 97 98 97 Oximetry 11/10/21 11/10/21 19:00 21:19 Temperature 98.6 F Pulse Rate 109 H 111 H Respiratory 16 15 Rate Blood Pressure 119/46 O2 Sat by Pulse Oximetry Medical Decision Making - Medical Decision Making was seen and examined. All diagnostics are reviewed. Has an EKG done which shows a sinus tachycardia at a rate of 111. There is no acute ST-T wave changes identified. 2 L of normal saline are given. Her heart rate does decrease down to approximately 110. Laboratory shows slightly elevated hemoglobin which is good as she was fairly low at the other facility 12 days ago and apparently received 4 units of blood. Her CO2 is decreased. Urinalysis shows slight increase in white blood cells but no identifiable bacteria and it does not appear definitive for urinary infection. The computed tomography scan of the abdomen and pelvis does show fluid collection in the lower abdomen. It is suspected that this potentially could be related to intra-abdominal abscess. Case is discussed with Dr. Sanchez and she is agreeable with admission and would like patient to be started on Unasyn and gentamicin. This is initiated. Patient only wanted Tylenol for pain thus far. She is in much less distress on recheck. She is agreeable with admission. - Lab Data Result diagrams: 11/10/21 17:48 11/10/21 17:48 Lab Results 11/10/21 11/10/21 11/10/21 Range/Units 17:26 17:48 17:48 WBC 7.3 (4.0-11.0) k/uL RBC 5.46 H (3.80-5.40) m/uL Hgb 16.4 H D (11.4-16.0) gm/dL Hct 48.8 H (34.0-46.0) % MCV 89.3 (80.0-100.0) fL MCH 30.0 (25.0-35.0) pg MCHC 33.6 (31.0-37.0) g/dL RDW 15.2 (11.5-15.5) % Plt Count 342 (150-450) k/uL MPV 7.4 Neutrophils % 89 % Lymphocytes % 7 % Monocytes % 2 % Eosinophils % 1 % Basophils % 0 % Neutrophils # 6.5 (1.3-7.7) k/uL Lymphocytes # 0.5 L (1.0-4.8) k/uL Monocytes # 0.1 (0-1.0) k/uL Eosinophils # 0.1 (0-0.7) k/uL Basophils # 0.0 (0-0.2) k/uL PT (9.0-12.0) sec INR (<1.2) APTT (22.0-30.0) sec Sodium 136 L (137-145) mmol/L Potassium 3.8 (3.5-5.1) mmol/L Chloride 108 H (98-107) mmol/L Carbon Dioxide 19 L (22-30) mmol/L Anion Gap 9 mmol/L BUN 13 (7-17) mg/dL Creatinine 0.72 (0.52-1.04) mg/dL Est GFR (CKD-EPI)AfAm >90 (>60 ml/min/1.73 sqM) Est GFR (CKD-EPI)NonAf >90 (>60 ml/min/1.73 sqM) Glucose 106 H (74-99) mg/dL Plasma Lactic Acid Alfredo (0.7-2.0) mmol/L Calcium 8.8 (8.4-10.2) mg/dL Total Bilirubin 0.7 (0.2-1.3) mg/dL AST 31 (14-36) U/L ALT 18 (4-34) U/L Alkaline Phosphatase 103 (38-126) U/L Total Protein 7.1 (6.3-8.2) g/dL Albumin 3.6 (3.5-5.0) g/dL Lipase 117 (23-300) U/L Urine Color Yellow Urine Appearance Clear (Clear) Urine pH 5.5 (5.0-8.0) Ur Specific [place] 1.031 (1.001-1.035) Urine Protein Trace H (Negative) Urine Glucose (UA) Negative (Negative) Urine Ketones Negative (Negative) Urine Blood Moderate H (Negative) Urine Nitrite Negative (Negative) Urine Bilirubin Negative (Negative) Urine Urobilinogen <2.0 (<2.0) mg/dL Ur Leukocyte Esterase Moderate H (Negative) Urine RBC 7 H (0-5) /hpf Urine WBC 13 H (0-5) /hpf Ur Squamous Epith Cells <1 (0-4) /hpf Urine Mucus Occasional H (None) /hpf 11/10/21 11/10/21 Range/Units 17:48 17:48 WBC (4.0-11.0) k/uL RBC (3.80-5.40) m/uL Hgb (11.4-16.0) gm/dL Hct (34.0-46.0) % MCV (80.0-100.0) fL MCH (25.0-35.0) pg MCHC (31.0-37.0) g/dL RDW (11.5-15.5) % Plt Count (150-450) k/uL MPV Neutrophils % % Lymphocytes % % Monocytes % % Eosinophils % % Basophils % % Neutrophils # (1.3-7.7) k/uL Lymphocytes # (1.0-4.8) k/uL Monocytes # (0-1.0) k/uL Eosinophils # (0-0.7) k/uL Basophils # (0-0.2) k/uL PT 12.5 H (9.0-12.0) sec INR 1.2 H (<1.2) APTT 23.5 (22.0-30.0) sec Sodium (137-145) mmol/L Potassium (3.5-5.1) mmol/L Chloride (98-107) mmol/L Carbon Dioxide (22-30) mmol/L Anion Gap mmol/L BUN (7-17) mg/dL Creatinine (0.52-1.04) mg/dL Est GFR (CKD-EPI)AfAm (>60 ml/min/1.73 sqM) Est GFR (CKD-EPI)NonAf (>60 ml/min/1.73 sqM) Glucose (74-99) mg/dL Plasma Lactic Acid Alfredo 0.8 (0.7-2.0) mmol/L Calcium (8.4-10.2) mg/dL Total Bilirubin (0.2-1.3) mg/dL AST (14-36) U/L ALT (4-34) U/L Alkaline Phosphatase (38-126) U/L Total Protein (6.3-8.2) g/dL Albumin (3.5-5.0) g/dL Lipase (23-300) U/L Urine Color Urine Appearance (Clear) Urine pH (5.0-8.0) Ur Specific [place] (1.001-1.035) Urine Protein (Negative) Urine Glucose (UA) (Negative) Urine Ketones (Negative) Urine Blood (Negative) Urine Nitrite (Negative) Urine Bilirubin (Negative) Urine Urobilinogen (<2.0) mg/dL Ur Leukocyte Esterase (Negative) Urine RBC (0-5) /hpf Urine WBC (0-5) /hpf Ur Squamous Epith Cells (0-4) /hpf Urine Mucus (None) /hpf Disposition Clinical Impression: Abdominal wall abscess at site of surgical wound, Sinus tachycardia, Fever, Dehydration, History of , Abdominal pain Disposition: ADMITTED IP TO THIS HOSP Condition: Fair Is patient prescribed a controlled substance at d/c from ED?: No Referrals: Sky Birch MD [Primary Care Provider] - 1-2 days Time of Disposition: 23:05 Decision Date: 11/10/21 Decision Time: 23:05
[2021-11-10] MEDS: HYDROcodone/APAP 5-325MG 1 EACH TAB PO PRN (23:41)
[2021-11-11] MEDS ORDERED: diphenhydrAMINE 50 MG/ML 1 ML VIAL IVP PRN (02:00)
[2021-11-11] MEDS: ACETAMINOPHEN TAB 325 MG TAB PO PRN ×3 (04:28→22:39)
[2021-11-11] MEDS: AMPICILLIN-SULBACTAM 3 GM in SODIUM CHLORIDE 0.9% 100 ML IVPB SCH ×3 (07:59→20:15)
--- NOTE | 2021-11-11 09:06 | P.HPOB ---
History of Present Illness H&P Date: 11/11/21 Chief Complaint: Fever and abdominal pain This is a 21-year-old female 1 para 1 who underwent an emergency section at approximately 32 weeks at [facility] in [place] on 10/29/2021. A few days after delivery, she did have a syncopal episode and her hemoglobin dropped to around 6. She was transfused with 3 units of blood. She was told she had a hematoma between her bladder and her uterus at that time. She was feeling better up until yesterday when she started having some lower abdominal pain and started having fevers up to 102. She states her bleeding has been very minimal vaginally. It does hurt when she urinates especially at the end of her urine stream. Computed tomography scan performed here shows a large hematoma approximately 10 cm anterior to the uterus. Obstetrical history: . History of 1 section at 32 weeks for severe preeclampsia. Review of Systems Constitutional: Reports fever Eyes: denies blurred vision, denies pain Ears, nose, mouth and throat: Denies headache, Denies sore throat Cardiovascular: Denies chest pain, Denies shortness of breath Respiratory: Denies cough Gastrointestinal: Reports abdominal pain (Lower pelvic), Denies nausea, Denies vomiting Genitourinary: Reports dysuria, Reports pelvic pain Musculoskeletal: Denies myalgias Integumentary: Denies pruritus, Denies rash Neurological: Denies numbness, Denies weakness Past Medical History Past Medical History: Hypertension (Severe preeclampsia) Additional Past Medical History / Comment(s): Covid 08/10, 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 History of Any Multi-Drug Resistant Organisms: None Reported Past Surgical History: Section, Tonsillectomy Additional Past Surgical History / Comment(s): lymph node removed Past Anesthesia/Blood Transfusion Reactions: No Reported Reaction Past Psychological History: No Psychological Hx Reported Smoking Status: Never smoker Past Alcohol Use History: None Reported Past Drug Use History: None Reported - Past Family History Father History Unknown: Yes Medications and Allergies Home Medications Medication Instructions Recorded Confirmed Type Levothyroxine Sodium [Synthroid] 200 mcg PO DIRECTED 10/22/21 11/10/21 History Heparin (Unknown Dose) 1 dose SQ DIRECTED 11/10/21 11/10/21 History Ibuprofen [Motrin] 600 mg PO Q6HR PRN 11/10/21 11/10/21 History Labetalol (Unknown Dose) 1 dose IM DIRECTED 11/10/21 11/10/21 History Allergies Allergy/AdvReac Type Severity Reaction Status Date / Time No Known Allergies Allergy Verified 11/10/21 21:35 Exam Osteopathic Statement: *. No significant issues noted on an osteopathic structural exam other than those noted in the History and Physical/Consult. Vital Signs Temp Pulse Pulse Resp BP BP Pulse Ox 11/11/21 07:57 100.2 F H 111 H 16 100/62 11/10/21 23:56 102 H 16 122/61 11/10/21 23:50 98.9 F 77 16 111/59 11/10/21 21:19 98.6 F 111 H 15 119/46 11/10/21 19:00 109 H 16 11/10/21 18:54 101.8 F H 114 H 18 126/64 97 11/10/21 17:22 116 H 20 114/67 98 11/10/21 17:00 102.3 F H 130 H 18 102/62 97 Intake and Output 11/10/21 11/11/21 11/11/21 22:59 06:59 14:59 Other: Weight 121.563 kg 121.563 kg HEENT: Within normal limits Heart: Regular rate and rhythm Lungs: Clear to auscultation bilaterally Abdomen: Soft, mildly tender over her fundus. Fundus is just above the umbilicus. She is also tender a little bit in her lower abdomen on the sides. Incision is clean dry and intact. Steri-Strips are removed. No ecchymosis is noted on her skin. Cesia-pad is dry. Extremities: Negative Homans Results Result Diagrams: 11/10/21 17:48 11/10/21 17:48 Abnormal Lab Results - Last 24 Hours (Table) 11/10/21 11/10/21 11/10/21 Range/Units 17:26 17:48 17:48 RBC 5.46 H (3.80-5.40) m/uL Hgb 16.4 H D (11.4-16.0) gm/dL Hct 48.8 H (34.0-46.0) % Lymphocytes # 0.5 L (1.0-4.8) k/uL PT (9.0-12.0) sec INR (<1.2) Sodium 136 L (137-145) mmol/L Chloride 108 H (98-107) mmol/L Carbon Dioxide 19 L (22-30) mmol/L Glucose 106 H (74-99) mg/dL Urine Protein Trace H (Negative) Urine Blood Moderate H (Negative) Ur Leukocyte Esterase Moderate H (Negative) Urine RBC 7 H (0-5) /hpf Urine WBC 13 H (0-5) /hpf Urine Mucus Occasional H (None) /hpf 11/10/21 Range/Units 17:48 RBC (3.80-5.40) m/uL Hgb (11.4-16.0) gm/dL Hct (34.0-46.0) % Lymphocytes # (1.0-4.8) k/uL PT 12.5 H (9.0-12.0) sec INR 1.2 H (<1.2) Sodium (137-145) mmol/L Chloride (98-107) mmol/L Carbon Dioxide (22-30) mmol/L Glucose (74-99) mg/dL Urine Protein (Negative) Urine Blood (Negative) Ur Leukocyte Esterase (Negative) Urine RBC (0-5) /hpf Urine WBC (0-5) /hpf Urine Mucus (None) /hpf Microbiology - Last 24 Hours (Table) 11/10/21 17:26 Urine Culture - Preliminary Urine,Voided Assessment and Plan (1) Abdominal wall abscess at site of surgical wound Current Visit: Yes Status: Acute Code(s): T81.49XA - INFECTION FOLLOWING A PROCEDURE, OTHER SURGICAL SITE, INIT SNOMED Code(s): 408203302 Plan: Admission for IV antibiotics for pelvic hematoma with probable abscess. Will obtain pelvic ultrasound to better delineate abscess area. We'll continue with Unasyn and gentamicin at this time. We'll continue her home pain medications.
[2021-11-11] MEDS ORDERED: SENNOSIDES 8.6 MG TAB PO PRN (09:08)
[2021-11-11] MEDS: LABETALOL 200 MG TAB PO SCH ×2 (10:02→20:16)
[2021-11-11] MEDS: HYDROcodone/APAP 5-325MG 1 EACH TAB PO PRN (10:05)
[2021-11-11] MEDS: HEPARIN SODIUM,PORCINE/PF 5,000 UNIT/0.5 ML SYRINGE SQ SCH ×2 (10:07→22:32)
[2021-11-11] MEDS: PANTOPRAZOLE 40 MG/10 ML VIAL IV SCH (10:09)
--- NOTE | 2021-11-11 13:29 | US ---
EXAMINATION TYPE: US pelvic limited DATE OF EXAM: 11/11/2021 COMPARISON: CT CLINICAL HISTORY: Pelvic hematoma versus abscess. Patient gave by 1 week prior in [place]. She is admitted with fever and pain. She relayed to technologist that she has signs of being septic. There are 2 irregular shaped anechoic areas anterior to uterus. These do not appear vascular. The largest of the two measures 6.2 x 1.1 x 1.2cm 2.) 2.5 x 0.8 x 1.7cm IMPRESSION: Nonspecific collections are seen. While the findings may reflect small hematomas or seroma, abscesses are difficult to exclude.
[2021-11-11] MEDS: GENTAMICIN 150 MG in SODIUM CHLORIDE 0.9% 100 ML IVPB SCH (15:53)
[2021-11-12] MEDS: GENTAMICIN 150 MG in SODIUM CHLORIDE 0.9% 100 ML IVPB SCH ×3 (00:10→15:53)
[2021-11-12 00:31] VITALS: RESP 16
[2021-11-12] MEDS ORDERED: GENTAMICIN 440 MG in SODIUM CHLORIDE 0.9% 100 ML IVPB SCH (02:00)
[2021-11-12] MEDS: AMPICILLIN-SULBACTAM 3 GM in SODIUM CHLORIDE 0.9% 100 ML IVPB SCH ×3 (02:05→14:04)
[2021-11-12] MEDS: PANTOPRAZOLE 40 MG/10 ML VIAL IV SCH (08:14)
[2021-11-12] MEDS: HEPARIN SODIUM,PORCINE/PF 5,000 UNIT/0.5 ML SYRINGE SQ SCH (08:14)
[2021-11-12 08:17] LABS: Basophils % (A) 1 %; Eosinophils # (A) 0.1 k/uL (0-0.7); Eosinophils % (A) 1 %; HCT 30.7 % (34.0-46.0); Hypochromasia Slight; Lymphocytes # (A) 1.5 k/uL (1.0-4.8); Lymphocytes % (A) 17 %; MCH 29.9 pg (25.0-35.0); MCV 90.6 fL (80.0-100.0); Mean Platelet Volume 7.9; Monocytes # (A) 0.4 k/uL (0-1.0); Monocytes % (A) 5 %; Neutrophils # (A) 6.8 k/uL (1.3-7.7); Neutrophils % (A) 75 %; Platelet Count 421 k/uL (150-450); RBC 3.39 m/uL (3.80-5.40)
[2021-11-12 08:24] LABS: HGB 10.1 gm/dL (11.4-16.0)
[2021-11-12] MEDS: ACETAMINOPHEN TAB 325 MG TAB PO PRN ×2 (08:53→14:05)
[2021-11-12] MEDS: LABETALOL 200 MG TAB PO SCH (09:17)
[2021-11-12 12:32] LABS: Basophils # (A) 0.1 k/uL (0-0.2); Basophils % (A) 1 %; Eosinophils # (A) 0.1 k/uL (0-0.7); Eosinophils % (A) 1 %; HCT 30.6 % (34.0-46.0); HGB 9.8 gm/dL (11.4-16.0); Hypochromasia Slight; Lymphocytes # (A) 1.4 k/uL (1.0-4.8); Lymphocytes % (A) 17 %; MCHC 32.2 g/dL (31.0-37.0); MCV 90.1 fL (80.0-100.0); Mean Platelet Volume 7.5; Monocytes # (A) 0.4 k/uL (0-1.0); Monocytes % (A) 5 %; Neutrophils # (A) 6.4 k/uL (1.3-7.7); Neutrophils % (A) 76 %; Platelet Count 405 k/uL (150-450); RBC 3.39 m/uL (3.80-5.40); RDW 14.7 % (11.5-15.5); WBC 8.4 k/uL (4.0-11.0)
[2021-11-12] MEDS ORDERED: GENTAMICIN TROUGH DUE 1 EACH MISC MISCELLANE ONE (15:30)
[2021-11-12 16:32] VITALS: BP 124/82; PULSE 111; TEMP 98.9
[2021-11-12] MEDS ORDERED: GENTAMICIN PEAK DUE 1 EACH MISC MISCELLANE ONE (18:00)
--- NOTE | 2021-11-12 18:21 | P.DS ---
Providers Date of admission: 11/10/21 23:05 Expected date of discharge: 11/12/21 Attending physician: Ira Sanchez Primary care physician: Sky Birch - Discharge Diagnosis(es) (1) Abdominal wall abscess at site of surgical wound Current Visit: Yes Status: Acute Hospital Course: This is a 21-year-old female 1 para 1 who delivered via section approximately 2 weeks ago at [facility] in [place] due to severe preeclampsia. She developed fevers and lower abdominal pain and was diagnosed with a hematoma shortly after delivery. She was admitted for potential abscess. She was started on IV antibiotics. She is had no fevers in over 24 hours now. Her pain with urination is much better. She states her overall pain is fine and she has not had to take any narcotics. She would like to go home if possible. Her hemoglobin initially on admission was 16 but did drop to 10 after the first day. I did repeat this and it is stable. She states her hemoglobin was around 10 when she was discharged from the hospital earlier. She did not have a white count. Abdomen is soft with minimal firmness just above the incision and nontender. Vital signs are stable. She does have some tachycardia in the 110s that has been for quite some time throughout her . Impression is pelvic hematoma with infection. Plan is to discharge home today. Will discharge on Keflex 500 mg 4 times a day for 7 days. She is advised that she can lower her labetalol to 200 mg twice a day but continue checking her blood pressures. She may switch from heparin to Lovenox 40 mg subcu daily. She does have some of this at home. She will follow-up with me in the office in 1-2 weeks for another postoperative check. She is advised to call if she starts having any high fevers or increased pain. Patient Condition at Discharge: Stable Plan - Discharge Summary New Discharge Prescriptions: New Cephalexin [Keflex] 500 mg PO Q6HR 7 Days #28 cap Continue Ferrous Sulfate [Iron (65 MG Elemental)] 325 mg PO BID Ibuprofen [Motrin] 600 mg PO Q6HR PRN PRN Reason: Pain Levothyroxine Sodium [Synthroid] 225 mcg PO DAILY Changed Labetalol [Trandate] 200 mg PO BID #0 Discontinued NIFEdipine XL [Procardia Xl] 30 mg PO DAILY oxyCODONE HCL [OxyIR] 5 mg PO Q4H PRN PRN Reason: Pain No Action Docusate [Colace] 100 mg PO BID PRN PRN Reason: Constipation Discharge Medication List Ibuprofen [Motrin] 600 mg PO Q6HR PRN 11/10/21 [History] Docusate [Colace] 100 mg PO BID PRN 11/11/21 [History] Ferrous Sulfate [Iron (65 MG Elemental)] 325 mg PO BID 11/11/21 [History] Levothyroxine Sodium [Synthroid] 225 mcg PO DAILY 11/11/21 [History] Cephalexin [Keflex] 500 mg PO Q6HR 7 Days #28 cap 11/12/21 [Rx] Labetalol [Trandate] 200 mg PO BID #0 11/12/21 [Rx] Follow up Appointment(s)/Referral(s): Sky Birch MD [Primary Care Provider] - 1-2 days Ira Sanchez DO [Doctor of Osteopathic Medicine] - 1 Week Activity/Diet/Wound Care/Special Instructions: Activity as tolerated. Diet as tolerated. No intercourse. Continue checking blood pressures at home. If high fevers, increased pain, or severely elevated blood pressures, return to the hospital or call the office. Discharge Disposition: HOME SELF-CARE
== END 2021-11-12 18:35 | disposition home or self-care (01) | DRG 776 ==
LOC: EC 16:57 → 4FBP 23:05
PROVIDERS: ADMIT Obstetrics & Gynecology; ATTEND Obstetrics & Gynecology
DX: O86.02 Infection of obstetric surgical wound, deep incisional site (principal); L02.211 Cutaneous abscess of abdominal wall; E86.0 Dehydration; O13.5 Gestational [pregnancy-induced] hypertension without significant proteinuria, complicating the puerperium; O90.2 Hematoma of obstetric wound; E06.3 Autoimmune thyroiditis; Z79.890 Hormone replacement therapy; Z79.899 Other long term (current) drug therapy; Z86.16 Personal history of COVID-19; Z90.89 Acquired absence of other organs; Z98.890 Other specified postprocedural states
CPT/HCPCS: 36415; 74177; 76857; 80053; 80170; 81001; 83605; 83690; 85025; 85610; 85730; 87040; 87086; 93005

== ENCOUNTER 2021-11-23 04:38 | Emergency (ER) | payer OTHER ==
[2021-11-23] MEDS ORDERED: ONDANSETRON 4 MG/2 ML VIAL IVP STA (05:43)
[2021-11-23] MEDS ORDERED: MORPHINE SULFATE 4 MG/ML SYRINGE IV STA (05:43)
[2021-11-23 05:58] LABS: Basophils # (A) 0.1 k/uL (0-0.2); Basophils % (A) 1 %; Eosinophils # (A) 0.1 k/uL (0-0.7); Eosinophils % (A) 2 %; HCT 34.5 % (34.0-46.0); HGB 11.8 gm/dL (11.4-16.0); Lymphocytes # (A) 1.6 k/uL (1.0-4.8); Lymphocytes % (A) 20 %; MCH 28.6 pg (25.0-35.0); MCHC 34.2 g/dL (31.0-37.0); Mean Platelet Volume 7.7; Monocytes # (A) 0.4 k/uL (0-1.0); Monocytes % (A) 5 %; Neutrophils # (A) 5.8 k/uL (1.3-7.7); Neutrophils % (A) 72 %; Platelet Count 401 k/uL (150-450); Poikilocytosis Slight; RBC 4.13 m/uL (3.80-5.40); RDW 14.5 % (11.5-15.5)
[2021-11-23 06:01] LABS: MCV 83.6 fL (80.0-100.0)
[2021-11-23 06:24] LABS: ALT 24 U/L (4-34); AST 27 U/L (14-36); African American GFR (CKD) >90 (>60 ml/min/1.73 sqM); Albumin 3.7 g/dL (3.5-5.0); Alkaline Phosphatase 105 U/L (38-126); Amylase 53 U/L (30-110); Anion Gap 9 mmol/L; Blood Urea Nitrogen 10 mg/dL (7-17); Calcium 8.8 mg/dL (8.4-10.2); Carbon Dioxide 30 mmol/L (22-30); Chloride 97 mmol/L (98-107); Glucose 103 mg/dL (74-99); Lipase 215 U/L (23-300); Non-African American GFR(CKD) >90 (>60 ml/min/1.73 sqM); Sodium 136 mmol/L (137-145); Total Bilirubin 0.7 mg/dL (0.2-1.3); Total Protein 7.1 g/dL (6.3-8.2)
[2021-11-23 06:40] LABS: HCG,Quantitative Serum <2.4 mIU/mL
--- NOTE | 2021-11-23 07:26 | CT ---
EXAMINATION TYPE: CT abdomen pelvis wo con CT DLP: 1097 mGycm, Automated exposure control for dose reduction was used. DATE OF EXAM: 11/23/2021 6:06 AM COMPARISON: CT abdomen pelvis most recent from 11/10/2021 . CLINICAL INDICATION:Female, 21 years old with history of abdominal pain; TECHNIQUE: Standard CT of the abdomen and pelvis without IV or oral contrast. Lack of IV or oral co ntrast limits evaluation of solid and hollow organ viscera. Coronal and sagittal reformats were perfo rmed. FINDINGS: LOWER CHEST: Unremarkable ABDOMEN LIVER: Diffusely hypoattenuating parenchyma. GALLBLADDER AND BILE DUCTS: Unremarkable. PANCREAS: Unremarkable. SPLEEN: Unremarkable. ADRENAL GLANDS: Unremarkable. KIDNEYS AND URETERS: No evidence of hydronephrosis or renal calculus. The ureters are unremarkable. PELVIS BLADDER: Unremarkable REPRODUCTIVE: There are post changes to the lower abdominal wall and uterus. Hematoma measu ring 8.8 x 5.8 x 10.4 cm remains present located anteriorly to the uterus and just above the bladder and the prevesicular space of Retzius. The size is similar to prior on 11/10/2021. ABDOMEN & PELVIS STOMACH AND BOWEL: No evidence of bowel obstruction. PERITONEUM: No evidence of pneumoperitoneum or free fluid. VASCULATURE: No evidence of aortic aneurysm. MUSCULOSKELETAL: No acute osseous abnormalities LYMPH NODES: No gross evidence for lymphadenopathy. SOFT TISSUE/ABDOMINAL WALL: New suspected small fluid collection is now seen in the tract w ithin the rectus abdominis musculature is suboptimally evaluated given lack of contrast. This suspect ed fluid collection measures 2.8 x 4.3 x 2.2 cm. Fluid within the subcutaneous tissues superficial to the aforementioned rectus abdominis fluid collec tion along the tract also appears subjectively slightly larger on today's exam measuring 18 Hounsfield units. IMPRESSION: 1. Limited evaluation without IV contrast, there is a new suspected fluid collection at the surgical site located between the rectus abdominis muscles. His could represent seroma, hematoma or abscess fo rmation. Clinical correlation is advised and consider ultrasound imaging of the lower midline abdomin al wall for further characterization of this fluid. 2. Subjectively larger irregular shaped fluid within the subcutaneous tissues along the tessy gical site. Correlate for superimposed infection. 3. Hematoma in the prevascular space of Retzius, no significant change in size from prior 2122.
[2021-11-23 07:27] LABS: Appearance,Urine Cloudy (Clear); Bilirubin,Urine 1+ (Negative); Blood,Urine Moderate (Negative); Color,Urine Dark Yellow; Glucose,Urine (UA) Trace (Negative); Ketones,Urine Trace (Negative); Leukocyte Esterase,Urine Moderate (Negative); Mucus,Urine Many /hpf; Nitrite,Urine Negative (Negative); Protein,Urine 1+ (Negative); RBC,Urine 18 /hpf (0-5); Squamous Epithelial Cell,Urine 1 /hpf (0-4); WBC,Urine 53 /hpf (0-5)
--- NOTE | 2021-11-23 07:29 | ED ---
General Adult HPI - General Chief complaint: Back Pain/Injury Stated complaint: Flank/Back Pain Time Seen by Provider: 11/23/21 05:08 Source: patient Mode of arrival: ambulatory Limitations: no limitations - History of Present Illness Initial comments: This patient is a 21-year-old woman with history of factor V leg and who had recent section (10/29/21). She has been having right flank pain going back approximately a week. She also has been having which she believes are constipation type abdominal pains. She has tried using home laxatives without any result. The patient also is having some associated nausea. No hematemesis. No change in urination. She states she is having barely any bloody discharge. The patient does take Lovenox for foctor 5 leiden, But had not taken the last 2 or 3 doses. No fever or chills. No cough or chest symptoms. No leg pain or swelling. -: days(s) Location: abdomen (Right flank) Radiation: non-radiation Quality: aching Consistency: constant Improves with: none Worsens with: none Treatments Prior to Arrival: none - Related Data Home Medications Medication Instructions Recorded Confirmed Ibuprofen [Motrin] 600 mg PO Q6HR PRN 11/10/21 11/10/21 Docusate [Colace] 100 mg PO BID PRN 11/11/21 11/11/21 Ferrous Sulfate [Iron (65 MG 325 mg PO BID 11/11/21 11/11/21 Elemental)] Levothyroxine Sodium [Synthroid] 225 mcg PO DAILY 11/11/21 11/11/21 Previous Rx's Medication Instructions Recorded Cephalexin [Keflex] 500 mg PO Q6HR 7 Days #28 cap 11/12/21 Labetalol [Trandate] 200 mg PO BID #0 11/12/21 Allergies Allergy/AdvReac Type Severity Reaction Status Date / Time No Known Allergies Allergy Verified 11/23/21 04:54 Review of Systems ROS Statement: Those systems with pertinent positive or pertinent negative responses have been documented in the HPI. ROS Other: All systems not noted in ROS Statement are negative. Constitutional: Denies: fever, chills Respiratory: Denies: cough, dyspnea Cardiovascular: Denies: chest pain, palpitations Gastrointestinal: Reports: abdominal pain, nausea, vomiting, constipation. 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 History of Any Multi-Drug Resistant Organisms: None Reported Past Surgical History: Section, Tonsillectomy Additional Past Surgical History / Comment(s): lymph node removed Past Anesthesia/Blood Transfusion Reactions: No Reported Reaction Past Psychological History: No Psychological Hx Reported Smoking Status: Never smoker Past Alcohol Use History: None Reported Past Drug Use History: None Reported - Past Family History Father History Unknown: Yes General Exam Limitations: no limitations General appearance: alert, in no apparent distress Head exam: Present: atraumatic, normocephalic Eye exam: Present: normal appearance. Absent: scleral icterus, conjunctival injection Neck exam: Present: normal inspection Respiratory exam: Present: normal lung sounds bilaterally. Absent: respiratory distress, wheezes, rales, rhonchi, stridor Cardiovascular Exam: Present: regular rate, normal rhythm, normal heart sounds. Absent: systolic murmur, diastolic murmur, rubs, gallop GI/Abdominal exam: Present: soft. Absent: distended, tenderness, guarding, rebound, rigid, mass, pulsatile mass, hernia Extremities exam: Present: normal inspection, normal capillary refill. Absent: pedal edema, calf tenderness Back exam: Present: normal inspection, CVA tenderness (R). Absent: CVA tenderness (L) Neurological exam: Present: alert Skin exam: Present: warm, dry, intact, normal color. Absent: rash Course Vital Signs 11/23/21 11/23/21 04:48 08:55 Temperature 99.3 F 99.1 F Pulse Rate 120 H 97 Respiratory 22 20 Rate Blood Pressure 155/85 148/82 O2 Sat by Pulse 96 97 Oximetry Medical Decision Making - Medical Decision Making This patient is 21-year-old woman with abdominal pain following did some continuing pain and tenderness here. Computed tomography scan does not reveal any apparent change in the patient's suspected hematoma. She does not have systemic symptoms of abscess. No fever. The patient always has some low level tachycardia which is unchanged today. I discussed the results with the patient, who did express desire to go home and try something for constipation as she believes she is feeling quite gassy and constipated. In light of this given magnesium citrate. Further care and follow-up are discussed and she will see Dr. Sanchez regarding the hematoma. Return parameters discussed - Lab Data Result diagrams: 11/23/21 05:38 11/23/21 05:38 Lab Results 11/23/21 11/23/21 11/23/21 Range/Units 05:38 05:38 05:38 WBC 8.0 (4.0-11.0) k/uL RBC 4.13 (3.80-5.40) m/uL Hgb 11.8 (11.4-16.0) gm/dL Hct 34.5 (34.0-46.0) % MCV 83.6 D (80.0-100.0) fL MCH 28.6 (25.0-35.0) pg MCHC 34.2 (31.0-37.0) g/dL RDW 14.5 (11.5-15.5) % Plt Count 401 (150-450) k/uL MPV 7.7 Neutrophils % 72 % Lymphocytes % 20 % Monocytes % 5 % Eosinophils % 2 % Basophils % 1 % Neutrophils # 5.8 (1.3-7.7) k/uL Lymphocytes # 1.6 (1.0-4.8) k/uL Monocytes # 0.4 (0-1.0) k/uL Eosinophils # 0.1 (0-0.7) k/uL Basophils # 0.1 (0-0.2) k/uL Poikilocytosis Slight Sodium 136 L (137-145) mmol/L Potassium 3.0 L (3.5-5.1) mmol/L Chloride 97 L (98-107) mmol/L Carbon Dioxide 30 (22-30) mmol/L Anion Gap 9 mmol/L BUN 10 (7-17) mg/dL Creatinine 0.71 (0.52-1.04) mg/dL Est GFR (CKD-EPI)AfAm >90 (>60 ml/min/1.73 sqM) Est GFR (CKD-EPI)NonAf >90 (>60 ml/min/1.73 sqM) Glucose 103 H (74-99) mg/dL Plasma Lactic Acid Alfredo (0.7-2.0) mmol/L Calcium 8.8 (8.4-10.2) mg/dL Total Bilirubin 0.7 (0.2-1.3) mg/dL AST 27 (14-36) U/L ALT 24 (4-34) U/L Alkaline Phosphatase 105 (38-126) U/L Total Protein 7.1 (6.3-8.2) g/dL Albumin 3.7 (3.5-5.0) g/dL Amylase 53 (30-110) U/L Lipase 215 (23-300) U/L HCG, Quant <2.4 mIU/mL Urine Color Dark Yellow Urine Appearance Cloudy H (Clear) Urine pH 6.0 (5.0-8.0) Ur Specific [place] 1.030 (1.001-1.035) Urine Protein 1+ H (Negative) Urine Glucose (UA) Trace H (Negative) Urine Ketones Trace H (Negative) Urine Blood Moderate H (Negative) Urine Nitrite Negative (Negative) Urine Bilirubin 1+ H (Negative) Urine Urobilinogen 2.0 (<2.0) mg/dL Ur Leukocyte Esterase Moderate H (Negative) Urine RBC 18 H (0-5) /hpf Urine WBC 53 H (0-5) /hpf Ur Squamous Epith Cells 1 (0-4) /hpf Urine Mucus Many H (None) /hpf 11/23/21 Range/Units 05:38 WBC (4.0-11.0) k/uL RBC (3.80-5.40) m/uL Hgb (11.4-16.0) gm/dL Hct (34.0-46.0) % MCV (80.0-100.0) fL MCH (25.0-35.0) pg MCHC (31.0-37.0) g/dL RDW (11.5-15.5) % Plt Count (150-450) k/uL MPV Neutrophils % % Lymphocytes % % Monocytes % % Eosinophils % % Basophils % % Neutrophils # (1.3-7.7) k/uL Lymphocytes # (1.0-4.8) k/uL Monocytes # (0-1.0) k/uL Eosinophils # (0-0.7) k/uL Basophils # (0-0.2) k/uL Poikilocytosis Sodium (137-145) mmol/L Potassium (3.5-5.1) mmol/L Chloride (98-107) mmol/L Carbon Dioxide (22-30) mmol/L Anion Gap mmol/L BUN (7-17) mg/dL Creatinine (0.52-1.04) mg/dL Est GFR (CKD-EPI)AfAm (>60 ml/min/1.73 sqM) Est GFR (CKD-EPI)NonAf (>60 ml/min/1.73 sqM) Glucose (74-99) mg/dL Plasma Lactic Acid Alfredo 0.8 (0.7-2.0) mmol/L Calcium (8.4-10.2) mg/dL Total Bilirubin (0.2-1.3) mg/dL AST (14-36) U/L ALT (4-34) U/L Alkaline Phosphatase (38-126) U/L Total Protein (6.3-8.2) g/dL Albumin (3.5-5.0) g/dL Amylase (30-110) U/L Lipase (23-300) U/L HCG, Quant mIU/mL Urine Color Urine Appearance (Clear) Urine pH (5.0-8.0) Ur Specific [place] (1.001-1.035) Urine Protein (Negative) Urine Glucose (UA) (Negative) Urine Ketones (Negative) Urine Blood (Negative) Urine Nitrite (Negative) Urine Bilirubin (Negative) Urine Urobilinogen (<2.0) mg/dL Ur Leukocyte Esterase (Negative) Urine RBC (0-5) /hpf Urine WBC (0-5) /hpf Ur Squamous Epith Cells (0-4) /hpf Urine Mucus (None) /hpf Disposition Clinical Impression: Abdominal pain Disposition: HOME SELF-CARE Condition: Good Instructions (If sedation given, give patient instructions): Flank Pain (ED) Is patient prescribed a controlled substance at d/c from ED?: No Referrals: Sky Birch MD [Primary Care Provider] - 1-2 days Ira Sanchez DO [Doctor of Osteopathic Medicine] - 1-2 days
[2021-11-23] MEDS ORDERED: MAGNESIUM CITRATE 296 ML BOTTLE PO ONE (07:53)
[2021-11-23 09:00] VITALS: BP 148/82; PULSE 97; RESP 20; TEMP 99.1
== END 2021-11-23 08:55 | disposition home or self-care (01) ==
LOC: EC 04:38
DX: R10.9 Unspecified abdominal pain (principal); I10 Essential (primary) hypertension
CPT/HCPCS: 36415; 80053; 82150; 83605; 83690; 85025; 81001; 84702; 87086; 74176; 99284; 96365; J0696; 87077; 87186

== ENCOUNTER 2023-02-22 20:25 | Emergency (ER) | payer OTHER ==
[2023-02-22 20:41] VITALS: TEMP 98.9
[2023-02-22 22:29] VITALS: RESP 20
[2023-02-22] MEDS ORDERED: SODIUM CHLORIDE 0.9% 1,000 ML IV STA (22:41)
[2023-02-22 23:42] LABS: ALT 32 U/L (4-34); AST 25 U/L (14-36); African American GFR (CKD) >90 (>60 ml/min/1.73 sqM); Albumin 3.8 g/dL (3.5-5.0); Alkaline Phosphatase 54 U/L (38-126); Anion Gap 12 mmol/L; Blood Urea Nitrogen 11 mg/dL (7-17); Calcium 9.9 mg/dL (8.4-10.2); Carbon Dioxide 19 mmol/L (22-30); Chloride 104 mmol/L (98-107); Glucose 95 mg/dL (74-99); Magnesium 1.7 mg/dL (1.6-2.3); Non-African American GFR(CKD) >90 (>60 ml/min/1.73 sqM); Potassium 3.7 mmol/L (3.5-5.1); Sodium 135 mmol/L (137-145); Total Bilirubin 0.3 mg/dL (0.2-1.3); Total Protein 6.9 g/dL (6.3-8.2)
[2023-02-22 23:45] LABS: INR 1.1 (<1.2); Partial Thromboplastin Time 24.6 sec (22.0-30.0); Prothrombin Time 11.4 sec (9.0-12.0)
[2023-02-22 23:47] LABS: Basophils % (A) 0 %; Eosinophils # (A) 0.1 k/uL (0-0.7); Eosinophils % (A) 1 %; HCT 36.9 % (34.0-46.0); HGB 12.8 gm/dL (11.4-16.0); Lymphocytes # (A) 2.5 k/uL (1.0-4.8); Lymphocytes % (A) 23 %; MCH 29.3 pg (25.0-35.0); MCHC 34.7 g/dL (31.0-37.0); MCV 84.4 fL (80.0-100.0); Mean Platelet Volume 7.8; Monocytes # (A) 0.3 k/uL (0-1.0); Monocytes % (A) 3 %; Neutrophils # (A) 7.8 k/uL (1.3-7.7); Neutrophils % (A) 72 %; Platelet Count 281 k/uL (150-450); RBC 4.37 m/uL (3.80-5.40); RDW 13.9 % (11.5-15.5); WBC 10.8 k/uL (3.8-10.6)
--- NOTE | 2023-02-22 23:54 | XR ---
EXAM: XR Chest, 2 Views CLINICAL HISTORY: ITS.REASON XR Reason: dysrhythmia TECHNIQUE: Frontal and lateral views of the chest. COMPARISON: No relevant prior studies available. FINDINGS: Lungs: Unremarkable. No consolidation. Pleural space: Unremarkable. No pneumothorax. Heart: Unremarkable. No cardiomegaly. Mediastinum: Unremarkable. Bones/joints: Unremarkable. IMPRESSION: Normal chest x-rays.
[2023-02-23 00:25] LABS: Amorphous Sediment,Urine Occasional /hpf; Appearance,Urine Cloudy (Clear); Bacteria,Urine Few /hpf; Bilirubin,Urine Negative (Negative); Blood,Urine Negative (Negative); Calcium Oxalate Crystals,Urine Many /hpf; Color,Urine Yellow; Glucose,Urine (UA) Negative (Negative); Ketones,Urine 1+ (Negative); Leukocyte Esterase,Urine Trace (Negative); Mucus,Urine Many /hpf; Nitrite,Urine Negative (Negative); Protein,Urine 1+ (Negative); RBC,Urine 2 /hpf (0-5); Specific Gravity,Urine 1.034 (1.001-1.035); Squamous Epithelial Cell,Urine 5 /hpf (0-4); Urobilinogen,Urine <2.0 mg/dL (<2.0); WBC,Urine 15 /hpf (0-5)
[2023-02-23 00:39] VITALS: BP 118/76; PULSE 112
--- NOTE | 2023-02-23 01:05 | ED ---
Arrhythmia/Palpitations HPI - General Chief Complaint: Arrhythmia/Palpitations Stated Complaint: Palpatations Time Seen by Provider: 02/22/23 22:29 Source: patient Mode of arrival: ambulatory Limitations: no limitations - History of Present Illness Initial Comments: 22-year-old female currently 18 weeks presenting with chief complaint of palpitations. . Patient states that today she had the sensation of "it feels like my heart is slowing down". She also states that she had times feels a heaviness in her chest. States that she experiences mild shortness of breath at times. No notable lower extremity swelling. Patient is currently on Lovenox due to factor V Leiden. She currently follows with [facility] Dr. Sanchez. No abdominal pain or vaginal bleeding. - Related Data Home Medications Medication Instructions Recorded Confirmed Ibuprofen [Motrin] 600 mg PO Q6HR PRN 11/10/21 11/10/21 Docusate [Colace] 100 mg PO BID PRN 11/11/21 11/11/21 Ferrous Sulfate [Iron (65 MG 325 mg PO BID 11/11/21 11/11/21 Elemental)] Levothyroxine Sodium [Synthroid] 225 mcg PO DAILY 11/11/21 11/11/21 Previous Rx's Medication Instructions Recorded Cephalexin [Keflex] 500 mg PO Q6HR 7 Days #28 cap 11/12/21 Labetalol [Trandate] 200 mg PO BID #0 11/12/21 Cephalexin [Keflex] 500 mg PO Q12HR 5 Days #10 cap 02/23/23 Allergies Allergy/AdvReac Type Severity Reaction Status Date / Time No Known Allergies Allergy Verified 02/22/23 20:32 Review of Systems ROS Statement: Those systems with pertinent positive or pertinent negative responses have been documented in the HPI. ROS Other: All systems not noted in ROS Statement are negative. 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 History of Any Multi-Drug Resistant Organisms: None Reported Past Surgical History: Section, Tonsillectomy Additional Past Surgical History / Comment(s): lymph node removed Past Anesthesia/Blood Transfusion Reactions: No Reported Reaction Past Psychological History: No Psychological Hx Reported Smoking Status: Never smoker Past Alcohol Use History: None Reported Past Drug Use History: None Reported - Past Family History Father History Unknown: Yes General Exam Limitations: no limitations General appearance: alert, in no apparent distress Head exam: Present: atraumatic, normocephalic, normal inspection Eye exam: Present: normal appearance, EOMI Neck exam: Present: normal inspection, full ROM Respiratory exam: Present: normal lung sounds bilaterally. Absent: respiratory distress, wheezes, rales, rhonchi, stridor Cardiovascular Exam: Present: regular rate, normal rhythm, normal heart sounds. Absent: systolic murmur, diastolic murmur, rubs, gallop, clicks Extremities exam: Absent: pedal edema Neurological exam: Present: alert, oriented X3 Psychiatric exam: Present: normal affect, normal mood Skin exam: Present: warm, dry, intact, normal color. Absent: rash Course Vital Signs 02/22/23 02/22/23 02/23/23 20:29 22:22 00:31 Temperature 98.9 F Pulse Rate 98 91 112 H Respiratory 18 20 20 Rate Blood Pressure 156/102 120/77 118/76 O2 Sat by Pulse 99 99 98 Oximetry EKG Findings - EKG Comments: EKG Findings:: Sinus rhythm with frequent PVCs. Ventricular rate 94. AL interval 142. QRS 87. QT 338. QTC 390. No ischemic changes. Medical Decision Making - Medical Decision Making Was pt. sent in by a medical professional or institution ([facility], [facility], urgent care, hospital, or halfway...) When possible be specific @ -No Did you speak to anyone other than the patient for history (EMS, parent, family, police, friend...)? What history was obtained from this source @ -No Did you review nursing and triage notes (agree or disagree)? Why? @ -I reviewed and agree with nursing and triage notes Were old charts reviewed (outside hosp., previous admission, EMS record, old EKG, old radiological studies, urgent care reports/EKG's, halfway records)? Report findings @ -No old charts were reviewed Differential Diagnosis (chest pain, altered mental status, abdominal pain women, abdominal pain men, vaginal bleeding, weakness, fever, dyspnea, syncope, headache, dizziness, GI bleed, back pain, seizure, CVA, palpatations, mental health, musculoskeletal)? @ -Differential Palpitations Ventricular arrhythmias, atrial arrhythmias, myocardial infarction, anemia, thyrotoxicosis, electrolyte imbalance, hypokalemia, pulmonary embolism, pulmonary disease, drugs, alcohol, anxiety, stress.... This is not meant to be an all-inclusive list. EKG interpreted by me (3pts min.). @ -As above X-rays interpreted by me (1pt min.). @ -Chest x-ray shows no acute process CT interpreted by me (1pt min.). @ -None done U/S interpreted by me (1pt. min.). @ -None done What testing was considered but not performed or refused? (CT, X-rays, U/S, labs)? Why? @ -None What meds were considered but not given or refused? Why? @ -None Did you discuss the management of the patient with other professionals (professionals i.e. , PA, MACHINE MOLDER, lab, RT, psych nurse, long term care social worker, model builder display, teacher, deck officer, skilled nursing case manager)? Give summary @ -No Was smoking cessation discussed for >3mins.? @ -No Was critical care preformed (if so, how long)? @ -No Were there social determinants of health that impacted care today? How? (Homelessness, low income, unemployed, alcoholism, drug addiction, transportation, low edu. Level, literacy, decrease access to med. care, [place] [facility], rehab)? @ -No Was there de-escalation of care discussed even if they declined (Discuss DNR or withdrawal of care, Hospice)? DNR status @ -No What co-morbidities impacted this encounter? (DM, HTN, Smoking, COPD, CAD, Cancer, CVA, ARF, Chemo, Hep., AIDS, mental health diagnosis, sleep apnea, morbid obesity)? @ - Was patient admitted / discharged? Hospital course, mention meds given and route, prescriptions, significant lab abnormalities, going to OR and other pertinent info. @ -22-year-old female presenting with chief complaint of palpitations. Currently 18 weeks . Physical examination is conducted. EKG shows sinus rhythm with PVCs. WBC 10.8, likely due to . Negative tro ponin. TSH WNL. Chest x-rays negative. Urine shows 15 WBCs, patient will be treated for asymptomatic bacteriuria with Keflex. heart tones are 160 per family RN. On reassessment patient is resting comfortably and would like to be discharged home. I educated patient on today's findings. Instructed her to follow up with [facility]. Educated her on the possibility of obtaining a heart monitor her symptoms continue. Follow-up with PCP. Report back to ER with any new or worsening symptoms. Discussed return parameters and answered all questions. Patient conveyed verbal understanding and agreed to the plan. I discussed this case in detail with my attending Dr. Haddad Undiagnosed new problem with uncertain prognosis? @ -No Drug Therapy requiring intensive monitoring for toxicity (Heparin, Nitro, Insulin, Cardizem)? @ -No Were any procedures done? @ -No Diagnosis/symptom? @ -Palpitations Acute, or Chronic, or Acute on Chronic? @ -Acute Uncomplicated (without systemic symptoms) or Complicated (systemic symptoms)? @ -Uncomplicated Side effects of treatment? @ -No Exacerbation, Progression, or Severe Exacerbation? @ -No Poses a threat to life or bodily function? How? (Chest pain, [place], [place], pneumonia, PE, COPD, DKA, ARF, appy, cholecystitis, CVA, Diverticulitis, Homicidal, Suicidal, threat to staff... and all critical care pts) @ -No - Lab Data Result diagrams: 02/22/23 23:01 02/22/23 23:01 Lab Results 02/22/23 02/22/23 02/22/23 Range/Units 23:01 23:01 23:01 WBC 10.8 H (3.8-10.6) k/uL RBC 4.37 (3.80-5.40) m/uL Hgb 12.8 (11.4-16.0) gm/dL Hct 36.9 (34.0-46.0) % MCV 84.4 (80.0-100.0) fL MCH 29.3 (25.0-35.0) pg MCHC 34.7 (31.0-37.0) g/dL RDW 13.9 (11.5-15.5) % Plt Count 281 (150-450) k/uL MPV 7.8 Neutrophils % 72 % Lymphocytes % 23 % Monocytes % 3 % Eosinophils % 1 % Basophils % 0 % Neutrophils # 7.8 H (1.3-7.7) k/uL Lymphocytes # 2.5 (1.0-4.8) k/uL Monocytes # 0.3 (0-1.0) k/uL Eosinophils # 0.1 (0-0.7) k/uL Basophils # 0.0 (0-0.2) k/uL PT 11.4 (9.0-12.0) sec INR 1.1 (<1.2) APTT 24.6 (22.0-30.0) sec Sodium (137-145) mmol/L Potassium (3.5-5.1) mmol/L Chloride (98-107) mmol/L Carbon Dioxide (22-30) mmol/L Anion Gap mmol/L BUN (7-17) mg/dL Creatinine (0.52-1.04) mg/dL Est GFR (CKD-EPI)AfAm (>60 ml/min/1.73 sqM) Est GFR (CKD-EPI)NonAf (>60 ml/min/1.73 sqM) Glucose (74-99) mg/dL Calcium (8.4-10.2) mg/dL Magnesium (1.6-2.3) mg/dL Total Bilirubin (0.2-1.3) mg/dL AST (14-36) U/L ALT (4-34) U/L Alkaline Phosphatase (38-126) U/L Troponin I (0.000-0.034) ng/mL Total Protein (6.3-8.2) g/dL Albumin (3.5-5.0) g/dL TSH (0.465-4.680) mIU/L Urine Color Yellow Urine Appearance Cloudy H (Clear) Urine pH 6.0 (5.0-8.0) Ur Specific Scam[place] 1.034 (1.001-1.035) Urine Protein 1+ H (Negative) Urine Glucose (UA) Negative (Negative) Urine Ketones 1+ H (Negative) Urine Blood Negative (Negative) Urine Nitrite Negative (Negative) Urine Bilirubin Negative (Negative) Urine Urobilinogen <2.0 (<2.0) mg/dL Ur Leukocyte Esterase Trace H (Negative) Urine RBC 2 (0-5) /hpf Urine WBC 15 H (0-5) /hpf Ur Squamous Epith Cells 5 H (0-4) /hpf Calcium Oxalate Crystal Many H (None) /hpf Amorphous Sediment Occasional H (None) /hpf Urine Bacteria Few H (None) /hpf Urine Mucus Many H (None) /hpf 02/22/23 02/22/23 Range/Units 23:01 23:01 WBC (3.8-10.6) k/uL RBC (3.80-5.40) m/uL Hgb (11.4-16.0) gm/dL Hct (34.0-46.0) % MCV (80.0-100.0) fL MCH (25.0-35.0) pg MCHC (31.0-37.0) g/dL RDW (11.5-15.5) % Plt Count (150-450) k/uL MPV Neutrophils % % Lymphocytes % % Monocytes % % Eosinophils % % Basophils % % Neutrophils # (1.3-7.7) k/uL Lymphocytes # (1.0-4.8) k/uL Monocytes # (0-1.0) k/uL Eosinophils # (0-0.7) k/uL Basophils # (0-0.2) k/uL PT (9.0-12.0) sec INR (<1.2) APTT (22.0-30.0) sec Sodium 135 L (137-145) mmol/L Potassium 3.7 (3.5-5.1) mmol/L Chloride 104 (98-107) mmol/L Carbon Dioxide 19 L (22-30) mmol/L Anion Gap 12 mmol/L BUN 11 (7-17) mg/dL Creatinine 0.41 L (0.52-1.04) mg/dL Est GFR (CKD-EPI)AfAm >90 (>60 ml/min/1.73 sqM) Est GFR (CKD-EPI)NonAf >90 (>60 ml/min/1.73 sqM) Glucose 95 (74-99) mg/dL Calcium 9.9 (8.4-10.2) mg/dL Magnesium 1.7 (1.6-2.3) mg/dL Total Bilirubin 0.3 (0.2-1.3) mg/dL AST 25 (14-36) U/L ALT 32 (4-34) U/L Alkaline Phosphatase 54 (38-126) U/L Troponin I <0.012 (0.000-0.034) ng/mL Total Protein 6.9 (6.3-8.2) g/dL Albumin 3.8 (3.5-5.0) g/dL TSH 3.310 (0.465-4.680) mIU/L Urine Color Urine Appearance (Clear) Urine pH (5.0-8.0) Ur Specific Sc[place] (1.001-1.035) Urine Protein (Negative) Urine Glucose (UA) (Negative) Urine Ketones (Negative) Urine Blood (Negative) Urine Nitrite (Negative) Urine Bilirubin (Negative) Urine Urobilinogen (<2.0) mg/dL Ur Leukocyte Esterase (Negative) Urine RBC (0-5) /hpf Urine WBC (0-5) /hpf Ur Squamous Epith Cells (0-4) /hpf Calcium Oxalate Crystal (None) /hpf Amorphous Sediment (None) /hpf Urine Bacteria (None) /hpf Urine Mucus (None) /hpf Disposition Clinical Impression: Palpitations Disposition: HOME SELF-CARE Condition: Good Instructions (If sedation given, give patient instructions): Heart Palpitations (ED) Additional Instructions: Follow-up with OBGYN. Report back to ER with any new or worsening symptoms. Prescriptions: Cephalexin [Keflex] 500 mg PO Q12HR 5 Days #10 cap Is patient prescribed a controlled substance at d/c from ED?: No Referrals: Sky Birch MD [Primary Care Provider] - 1-2 days Ira Sanchez DO [Doctor of Osteopathic Medicine] - 1-2 days Time of Disposition: 01:05
== END 2023-02-23 01:27 | disposition home or self-care (01) ==
LOC: EC 20:25
DX: O99.412 Diseases of the circulatory system complicating pregnancy, second trimester (principal); R00.2 Palpitations; O16.2 Unspecified maternal hypertension, second trimester; Z86.16 Personal history of COVID-19; Z3A.18 18 weeks gestation of pregnancy
CPT/HCPCS: 36415; 71046; 80053; 81001; 83735; 84443; 84484; 85025; 85610; 85730; 87086; 93005; 96360; 99285

== ENCOUNTER 2023-07-07 14:40 | Outpatient (CLI) | payer OTHER ==
[2023-07-07 17:27] LABS: Basophils # (A) 0.1 k/uL (0-0.2); Basophils % (A) 0 %; Eosinophils # (A) 0.1 k/uL (0-0.7); Eosinophils % (A) 1 %; HCT 41.1 % (34.0-46.0); HGB 13.7 gm/dL (11.4-16.0); Lymphocytes # (A) 1.9 k/uL (1.0-4.8); Lymphocytes % (A) 16 %; MCHC 33.4 g/dL (31.0-37.0); MCV 83.9 fL (80.0-100.0); Mean Platelet Volume 8.2; Monocytes # (A) 0.3 k/uL (0-1.0); Monocytes % (A) 2 %; Neutrophils # (A) 9.1 k/uL (1.3-7.7); Neutrophils % (A) 79 %; Platelet Count 287 k/uL (150-450); RDW 14.8 % (11.5-15.5); WBC 11.5 k/uL (3.8-10.6)
[2023-07-07 18:07] LABS: ALT 19 U/L (4-34); AST 21 U/L (14-36); African American GFR (CKD) >90 (>60 ml/min/1.73 sqM); Blood Urea Nitrogen 9 mg/dL (7-17); LDH 199 U/L (120-246); Non-African American GFR(CKD) >90 (>60 ml/min/1.73 sqM); Uric Acid 6.4 mg/dL (3.7-7.4)
--- NOTE | 2023-07-07 19:53 | US ---
EXAMINATION TYPE: US OB BPP wo non-stress DATE OF EXAM: 07/07/2023 COMPARISON: Earlier today CLINICAL INDICATION: Female, 23 years old with history of BPP 10/28 today; TECHNIQUE: Transabdominal (TA). Scoring by the housekeeping cleaner during real-time assessment. FINDINGS: BPP PARAMETERS: HEART RATE: 142 bpm RHYTHM: Normal NACHO: 9.5cm DIAPHRAGM IMAGED: yes BPP SCORIN. Breathin (1 episode of breathing of 30 second duration in 30 minutes of scanning time) 2. Movement: 2 (at least 3 discrete body movements in 30 minutes) 3. Tone: 2 (1 episode of active flexion/extension of limb) 4. NACHO: 2 (NACHO index > 5cm) IMPRESSION: 1. TOTAL SCORE: 8 / 8, improved from earlier today. 2. Low normal NACHO at 9.5 cm.
--- NOTE | 2023-07-07 20:23 | P.MSEPDOC ---
Presenting Problems - Arrival Data Date of Arrival on Unit: 07/07/23 Time of Arrival on Unit: 14:45 Mode of Transport: Portable I agree with the RN Medical Screening Exam: Yes Case reviewed; plan agreed upon as documented in EMR&OBIX.: Yes Diagnosis: RELATED CONDITIONS, UNSPECIFIED, THIRD TRIMESTER (Patient is sent in from the office for evaluation of a BPP of 10/28 at [facility]. She is a 23 37 5/7 weeks who is getting BPP due to clotting disorder and on anti- coagulants. I monitored for 4 hrs (Category I). Repeat BPP 12/28. Patient is feeling normal movement. Serial blood pressures were normal, but I ordered pre- eclampsia labs due to history of HELLP. All labs normal. Patient was discharged home to f/u primary OB (Dr. Sanchez) as scheduled. There is no evidence of maternal/ compromise at this time or indication for delivery.)
[2023-07-07 21:37] VITALS: BP 141/84; PULSE 99; RESP 16; TEMP 96.2
--- NOTE | 2023-07-08 06:37 | P.MSEPDOC ---
Presenting Problems - Arrival Data Date of Arrival on Unit: 07/07/23 Time of Arrival on Unit: 14:45 Mode of Transport: Portable - Complaint OB-Reason for Admission/Chief Complaint: Other Comment: Pt sent from [facility] for extended monitoring. Pt had BPP today 6/8, points removed for breathing, NST reactive. Dr. Willis ordered 4 hrs of monitoring and a BPP after 4 hrs of monitoring. Pt to be NPO. Medical History - Information : 2 Para: 1 Term: 0 : 1 Abortions: Spontaneous or Elective: 0 Number of Living Children: 1 - Gestational Age Gestational Age by JANNA (wks/days): 37 Weeks and 5 Days - History Complications: Other Comment: Hx HELLP syndrom, factor V, Pre-eclampsia Review of Systems - Review of Systems Constitutional: No problems Breast: No problems ENT: No problems Cardiovascular: No problems Respiratory: No problems Gastrointestinal: No problems Genitourinary: No problems Musculoskeletal: No problems Neurological: No problems Skin: No problems Vital Signs - Temperature Temperature: 96.2 F Temperature Source: Temporal Artery Scan - Pulse Pulse Oximetery Pulse Rate: 99 Pulse Assessment Method: Pulse Oximetry - Respirations Respiratory Rate: 16 Oxygen Delivery Method: Room Air O2 Sat by Pulse Oximetry: 100 - Blood Pressure Right Arm Blood Pressure: 141/84 Blood Pressure Mean: 103 Blood Pressure Source: Automatic Cuff Medical Screen Scoring - Cervical Exam Membranes: Intact - Assessment - Baby A Baseline FHR: 140 Heart Rate - NICHD Category: Category I (Normal) NST: Reactive Physician Notification - Physician Notified Physician Notified Date: 07/07/23 Physician Notified Time: 16:20 Physician: Steve Willis New Order Received: Yes - Notification Comment Comment: Dr. Willis called for update. Observed EFM at office, requested repeat BPs. Advsd that pts mother requesting pt be delivered r/t history and concerns of BPP earlier. States he will come over to spk c\pt and pts mother. Maternal Triage Index - Scheduled/Requesting Priority 5 Scheduled/Requesting Priority 5: Yes Criteria Met for Priority 5: Pt sent from [facility] for extended monitoring. Pt had BPP today 6/8, points removed for breathing, NST reactive. Dr. Willis ordered 4 hrs of monitoring and a BPP after 4 hrs of monitoring. Pt to be NPO Disposition - Disposition OB Disposition: Discharge to home Discharge Date: 07/07/23 Discharge Time: 20:05 I agree with the RN Medical Screening Exam: Yes Case reviewed; plan agreed upon as documented in EMR&OBIX.: Yes Diagnosis: RELATED CONDITIONS, UNSPECIFIED, THIRD TRIMESTER (See dictated ob progress note.)
== END 2023-07-07 20:05 | disposition home or self-care (01) ==
LOC: FBPOP 14:40
PROVIDERS: ATTEND Obstetrics & Gynecology
DX: O14.93 Unspecified pre-eclampsia, third trimester (principal); Z3A.37 37 weeks gestation of pregnancy; Z87.59 Personal history of other complications of pregnancy, childbirth and the puerperium; Z79.82 Long term (current) use of aspirin
CPT/HCPCS: 59025; 36415; 82565; 83615; 84450; 84460; 84520; 84550; 85025; 76819; G0463; 99215

== ENCOUNTER → 2023-07-07 | Outpatient (CLI) | payer OTHER ==
--- NOTE | 2023-07-07 14:23 | US ---
EXAMINATION TYPE: US OB BPP wo non-stress DATE OF EXAM: 07/07/2023 COMPARISON: NONE CLINICAL INDICATION: Female, 23 years old with history of Z87.59 PERSONAL HISTORY OF COMP OF PREG; TECHNIQUE: Transabdominal (TA). Scoring by the accounts payable representative during real-time assessment. FINDINGS: BPP PARAMETERS: PRESENTATION: Vertex LIE: Longitudinal?? HEART RATE: 147 bpm RHYTHM: Normal NACHO: 7.6 cm remeasured to 9.1 cm DIAPHRAGM IMAGED: Yes - ? No episodes of breathing seen within a 30 minute time period; Sucklin g seen but no attempts to swallow. BPP SCORIN. Breathin (1 episode of breathing of 30 second duration in 30 minutes of scanning time) 2. Movement: 2 (at least 3 discrete body movements in 30 minutes) 3. Tone: 2 (1 episode of active flexion/extension of limb) 4. NACHO: 2 (NACHO index > 5cm) IMPRESSION: 1. TOTAL SCORE: 6 / 8 2. NACHO initially measured at 7.6 cm. Remeasured at 9.1 cm.
== END | disposition home or self-care (01) ==
LOC: RADUSWWP 13:04
PROVIDERS: ATTEND Obstetrics & Gynecology
DX: D68.2 Hereditary deficiency of other clotting factors (principal); Z87.59 Personal history of other complications of pregnancy, childbirth and the puerperium
CPT/HCPCS: 76819

== ENCOUNTER → 2023-07-14 | Outpatient (CLI) | payer OTHER ==
--- NOTE | 2023-07-14 22:17 | US ---
EXAMINATION TYPE: US OB BPP wo non-stress DATE OF EXAM: 07/14/2023 COMPARISON: NONE CLINICAL INDICATION: Female, 23 years old with history of Z87.59 PERSONAL HISTORY OF COMP OF PREG; TECHNIQUE: Transabdominal (TA). Scoring by the rubbing bed operator during real-time assessment. FINDINGS: BPP PARAMETERS: HEART RATE: 144 bpm RHYTHM: Normal NACHO: 8.9cm DIAPHRAGM IMAGED: yes BPP SCORIN. Breathin (1 episode of breathing of 30 second duration in 30 minutes of scanning time) 2. Movement: 2 (at least 3 discrete body movements in 30 minutes) 3. Tone: 2 (1 episode of active flexion/extension of limb) 4. NACHO: 2 (NACHO index > 5cm) IMPRESSION: 1. TOTAL SCORE: 8 / 8. 2. Note low normal NACHO at 8.9 cm.
== END | disposition home or self-care (01) ==
LOC: RADUSWWP 13:06
PROVIDERS: ATTEND Obstetrics & Gynecology
DX: O41.00X0 Oligohydramnios, unspecified trimester, not applicable or unspecified (principal); D68.2 Hereditary deficiency of other clotting factors; Z87.59 Personal history of other complications of pregnancy, childbirth and the puerperium; Z3A.00 Weeks of gestation of pregnancy not specified
CPT/HCPCS: 76819

== ENCOUNTER 2023-07-18 02:32 | Inpatient (IN) | payer OTHER ==
[2023-07-18] MEDS: LACTATED RINGERS 1,000 ML IV SCH ×2 (04:48→06:45)
[2023-07-18] MEDS ORDERED: TERBUTALINE 1 MG/ML VIAL SQ PRN (06:09)
[2023-07-18] MEDS ORDERED: LIDOCAINE 0.5% (PF) 5 MG/ML (50 ML SDV) SQ PRN (06:09)
[2023-07-18] MEDS ORDERED: TRANEXAMIC 1,000 MG/100ML-NACL 1,000 MG in EMPTY BAG 1 BAG IV PRN (06:09)
[2023-07-18] MEDS ORDERED: CARBOPROST TROMETHAMINE 250 MCG/ML 1 ML AMP IM PRN (06:09)
[2023-07-18] MEDS ORDERED: METHYLERGONOVINE 0.2 MG/ML 1 ML AMP IM PRN (06:09)
[2023-07-18] MEDS ORDERED: miSOPROStoL 200 MCG TAB PO PRN (06:09)
[2023-07-18] MEDS ORDERED: OXYTOCIN 10 UNIT/ML 1 ML VIAL IM PRN (06:09)
[2023-07-18] MEDS ORDERED: OXYTOCIN 30 UNITS/500 ML NS 30 UNIT in SALINE 1 500ML.BAG IV SCH ×2 (06:15→09:15)
[2023-07-18 06:25] LABS: Basophils % (A) 0 %; Eosinophils # (A) 0.1 k/uL (0-0.7); Eosinophils % (A) 1 %; HCT 39.8 % (34.0-46.0); HGB 13.4 gm/dL (11.4-16.0); Lymphocytes # (A) 2.2 k/uL (1.0-4.8); Lymphocytes % (A) 19 %; MCH 27.7 pg (25.0-35.0); MCHC 33.6 g/dL (31.0-37.0); MCV 82.7 fL (80.0-100.0); Mean Platelet Volume 8.8; Monocytes # (A) 0.3 k/uL (0-1.0); Monocytes % (A) 3 %; Neutrophils # (A) 8.9 k/uL (1.3-7.7); Neutrophils % (A) 76 %; Platelet Count 253 k/uL (150-450); RBC 4.82 m/uL (3.80-5.40); RDW 14.7 % (11.5-15.5); WBC 11.7 k/uL (3.8-10.6)
[2023-07-18 06:28] LABS: Appearance,Urine Clear (Clear); Bilirubin,Urine Negative (Negative); Blood,Urine Negative (Negative); Color,Urine Light Yellow; Glucose,Urine (UA) Negative (Negative); Ketones,Urine Negative (Negative); Leukocyte Esterase,Urine Negative (Negative); Nitrite,Urine Negative (Negative); Protein,Urine Negative (Negative); Specific Gravity,Urine 1.021 (1.001-1.035); Urobilinogen,Urine <2.0 mg/dL (<2.0)
[2023-07-18 07:02] LABS: Creatinine,Urine Random 95.5 mg/dL; Protein/Creatinine Ratio,Urine 0.126
[2023-07-18 07:03] LABS: Creatinine,Urine Random 97.5 mg/dL
[2023-07-18 07:21] LABS: ALT 14 U/L (4-34); AST 18 U/L (14-36); African American GFR (CKD) >90 (>60 ml/min/1.73 sqM); Blood Urea Nitrogen 8 mg/dL (7-17); LDH 158 U/L (120-246); Non-African American GFR(CKD) >90 (>60 ml/min/1.73 sqM); Uric Acid 6.1 mg/dL (3.7-7.4)
--- NOTE | 2023-07-18 07:48 | P.HPOB ---
History of Present Illness H&P Date: 07/18/23 Chief Complaint: previous , early labor 23 year old at 39 weeks and 2 days complaining of contractions. She is leilani every 2-4 minutes for several hours. Her cervix is 2/60/-2 and she is not making any change but her contractions continued to get stronger. Her blood pressures are also increasing and she does have a history of preeclampsia with HELLP syndrome in her last . Decision was made to move towards delivery and she will have a repeat low transverse today. Review of Systems All systems: negative Constitutional: Denies chills, Denies fever Eyes: denies blurred vision, denies pain Ears, nose, mouth and throat: Denies headache, Denies sore throat Cardiovascular: Denies chest pain, Denies shortness of breath Respiratory: Denies cough Gastrointestinal: Denies abdominal pain, Denies diarrhea, Denies nausea, Denies vomiting Genitourinary: Denies dysuria, Denies hematuria Musculoskeletal: Denies myalgias Integumentary: Denies pruritus, Denies rash Neurological: Denies numbness, Denies weakness Psychiatric: Denies anxiety, Denies depression Endocrine: Denies fatigue, Denies weight change 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 History of Any Multi-Drug Resistant Organisms: None Reported Past Surgical History: Section, Tonsillectomy Additional Past Surgical History / Comment(s): lymph node removed Past Anesthesia/Blood Transfusion Reactions: No Reported Reaction Past Psychological History: No Psychological Hx Reported Smoking Status: Never smoker Past Alcohol Use History: None Reported Past Drug Use History: None Reported - Past Family History Father History Unknown: Yes Medications and Allergies Home Medications Medication Instructions Recorded Confirmed Type Levothyroxine Sodium [Synthroid] 350 mcg PO WEEKLY 11/11/21 07/18/23 History Aspirin [[place]] 81 mg PO 07/07/23 History Heparin Sodium,Porcine/Pf [Heparin 500 unit IV BID 07/07/23 07/18/23 History 500 Unit/5 ml (100/ml) Flush] Levothyroxine Sodium [Synthroid] 175 mcg PO DAILY 07/07/23 07/18/23 History Allergies Allergy/AdvReac Type Severity Reaction Status Date / Time No Known Allergies Allergy Verified 07/18/23 02:38 Exam Osteopathic Statement: *. No significant issues noted on an osteopathic structural exam other than those noted in the History and Physical/Consult. Vital Signs Temp Pulse Resp BP Pulse Ox 07/18/23 06:31 96.6 F L 84 18 144/75 98 07/18/23 04:58 98 18 145/78 07/18/23 02:34 92 18 140/80 98 Intake and Output 07/17/23 07/18/23 07/18/23 22:59 06:59 14:59 Other: Weight 136.078 kg Heart: Regular rate and rhythm Lungs: Clear to auscultation bilaterally Abdomen: Soft, nontender Extremities: Negative Homans sign Results Result Diagrams: 07/18/23 04:50 07/18/23 07:01 Abnormal Lab Results - Last 24 Hours (Table) 07/18/23 07/18/23 07/18/23 Range/Units 04:50 04:50 07:01 WBC 11.7 H (3.8-10.6) k/uL Neutrophils # 8.9 H (1.3-7.7) k/uL Fibrinogen 664 H (200-500) mg/dL Creatinine 0.48 L (0.52-1.04) mg/dL Assessment and Plan (1) Previous section Current Visit: Yes Status: Acute Code(s): Z98.891 - HISTORY OF UTERINE SCAR FROM PREVIOUS SURGERY SNOMED Code(s): 599464837 (2) 39 weeks gestation of Current Visit: Yes Status: Acute Code(s): Z3A.39 - 39 WEEKS GESTATION OF SNOMED Code(s): 87063731 (3) Labor, prolonged latent phase Current Visit: Yes Status: Acute Code(s): O63.0 - PROLONGED FIRST STAGE (OF LABOR) SNOMED Code(s): 101932673 Plan: 1. repeat low transverse
[2023-07-18] MEDS: CITRIC ACID-SODIUM CITRATE 15 ML CUP PO ONE (08:20)
[2023-07-18] MEDS: ceFAZolin 3 GM in SODIUM CHLORIDE 0.9% 100 ML IVPB ONE (08:25)
[2023-07-18] MEDS ORDERED: KETOROLAC 15 MG/ML 1 ML VIAL ONE (08:30)
[2023-07-18] MEDS ORDERED: MORPHINE SULFATE (PF) 0.3 MG/0.3 ML SYR ONE (08:30)
[2023-07-18] MEDS ORDERED: OXYTOCIN 30 UNITS/500 ML NS BAG IV ONE (08:30)
[2023-07-18] MEDS ORDERED: diphenhydrAMINE 50 MG CAP PO PRN (09:07)
[2023-07-18] MEDS ORDERED: METOCLOPRAMIDE 5 MG/ML 2 ML VIAL IVP PRN (09:07)
[2023-07-18] MEDS ORDERED: diphenhydrAMINE 25 MG CAP PO PRN (09:07)
[2023-07-18] MEDS ORDERED: diphenhydrAMINE 50 MG/ML 1 ML VIAL IVP PRN ×2 (09:07)
[2023-07-18] MEDS ORDERED: NALOXONE 0.4 MG/ML 1 ML VIAL IV PRN (09:07)
[2023-07-18] MEDS ORDERED: ZOLPIDEM 5 MG TAB PO PRN (09:07)
--- NOTE | 2023-07-18 09:14 | P.OP ---
Date of Procedure: 07/18/23 Preoperative Diagnosis: 1. at 39 weeks 2 days 2. early labor 3. previous Postoperative Diagnosis: same Procedure(s) Performed: repeat low transverse Anesthesia: spinal Surgeon: Renu Greer Fire Investigation Manager #1: Steve Willis Estimated Blood Loss (ml): 316 IV fluids (ml): 600 Urine output (ml): 200 Pathology: none sent Condition: stable Disposition: floor Operative Findings: viable female. 9,9, weight 7#8oz, normal uterus, tubes and ovaries with lots of scar tissue to the uterine fundus and back of uterus. Description of Procedure: Patient was taken to the operating room where spinal anesthesia was found be adequate. She was prepped and draped in normal sterile fashion in dorsal supine position with a leftward tilt. Pfannenstiel skin incision was made the scalpel and carried through to the underlying layer of fascia with the scalpel. Fascia was incised in midline and carried bilaterally with the Carter scissors. The superior aspect of the fascial incision was grasped with [place] clamps elevated and the underlying rectus muscles dissected off with the Carter's. Attention was then turned to inferior aspect of same incision which in a similar fashion was grasped tented up and the underlying rectus muscles dissected off with the Carter's. The rectus muscles were the midline and the peritoneum was identified tented up and entered sharply with the scalpel. The incision was extended superiorly and inferiorly with good visualization of the bladder. The bladder blade was inserted. There was some major scar tissue at the fundus and back of uterus. A low transverse incision was then made on the uterus with the scalpel. This was carried bilaterally and digital manner. Infant's head delivered atraumatically, nose and mouth bulb suctioned, cord clamped and cut, infant handed off to waiting nurses. Apgars 9,9, weight 7 lbs. 8 oz. Placenta delivered manually, intact with three-vessel cord. The uterus is exteriorized with some difficulty and cleared of all clots and debris. The uterine incision was closed with 0 Vicryl in a running locked fashion. Second layer of the same sutures used in imbricating fashion to obtain excellent hemostasis. Both ovaries and tubes appeared normal. The uterus was placed back into the abdomen. Surgical Snow was put on the front and fundus of uterus where there were some raw areas that pulled away from scar tissue. The peritoneum was reapproximated using 2-0 Vicryl in a running fashion. The muscles were reapproximated using 2- 0 Vicryl in interrupted fashion. The fascia was reapproximated using 0 Vicryl in a running fashion. The subcutaneous tissues closed with 3-0 Vicryl running fashion. The skin was closed chicho. Patient tolerated the procedure well, sponge and instrument counts were correct times 2 and she was taken to the recovery room in stable condition.
[2023-07-18] MEDS: ONDANSETRON 4 MG/2 ML VIAL IVP PRN (09:35)
[2023-07-18] MEDS: ACETAMINOPHEN TAB 500 MG TAB PO SCH (11:49)
[2023-07-18] MEDS: KETOROLAC 15 MG/ML 1 ML VIAL IVP SCH (15:05)
[2023-07-18] MEDS: IBUPROFEN 600 MG TAB PO SCH (16:20)
[2023-07-18] MEDS: SENNOSIDES-DOCUSATE SODIUM 1 EACH TAB PO SCH (19:33)
[2023-07-19 00:58] VITALS: RESP 16
[2023-07-19 06:17] LABS: Basophils % (A) 0 %; Eosinophils % (A) 0 %; HCT 33.6 % (34.0-46.0); HGB 11.4 gm/dL (11.4-16.0); Lymphocytes # (A) 1.4 k/uL (1.0-4.8); Lymphocytes % (A) 12 %; MCH 28.3 pg (25.0-35.0); MCV 83.1 fL (80.0-100.0); Mean Platelet Volume 8.2; Monocytes # (A) 0.3 k/uL (0-1.0); Monocytes % (A) 3 %; Neutrophils # (A) 9.7 k/uL (1.3-7.7); Neutrophils % (A) 83 %; Platelet Count 217 k/uL (150-450); RBC 4.04 m/uL (3.80-5.40); RDW 14.9 % (11.5-15.5); WBC 11.6 k/uL (3.8-10.6)
[2023-07-19] MEDS: ENOXAPARIN 40 MG/0.4 ML SYRINGE SQ SCH (08:18)
--- NOTE | 2023-07-19 09:46 | P.PN ---
Progress Note - Text Progress Note Date: 07/19/23 Ms. Abel is a 23 -year-old female had a history of under spinal a nalgesia with Astramorph 300 g for postop pain. Today patient is comfortable sitting in her bed. Today patient rated her pain level 2 out of 10 in severity. Denied any fever, drowsiness, confusion. Denied any weakness, tingling sensation in her lower extremities. Denied any bowel or bladder problems. Moving all extremities without any difficulty. Able to walk without any difficulties. Vitals: Hemodynamically stable Continue oral pain medication as per primary team.
[2023-07-19] MEDS: SIMETHICONE 80 MG CHEWABLE PO PRN (17:30)
--- NOTE | 2023-07-20 07:43 | P.PNOBGPC ---
Subjective - Subjective Principal diagnosis: Status post repeat low transverse postop day 1 Interval history: Patient seen and examined. Denies nausea, vomiting, chest pain, shortness of breath or calf pain. Patient reports: Reports appetite normal, Reports voiding normally, Reports pain well controlled, Reports ambulating normally [place]: doing well Objective - Vital Signs Latest vital signs: Vital Signs Temp Pulse Resp BP Pulse Ox 07/20/23 00:00 98.5 F 106 H 16 125/77 99 07/19/23 16:00 98.3 F 72 16 103/62 100 07/19/23 08:00 98.3 F 68 16 103/68 Intake and Output 07/19/23 07/20/23 07/20/23 22:59 06:59 14:59 Other: # Voids 1 2 - Exam Lungs: bilateral: normal Chest: Normal S1, Normal S2 Extremities: Present: normal Abdomen: Present: normal appearance, soft. Absent: distention, tenderness Incision: Present: normal, dry, intact Uterus: Present: normal, firm Assessment and Plan (1) Previous section Current Visit: Yes Status: Resolved Code(s): Z98.891 - HISTORY OF UTERINE SCAR FROM PREVIOUS SURGERY SNOMED Code(s): 782171236 (2) 39 weeks gestation of Current Visit: Yes Status: Resolved Code(s): Z3A.39 - 39 WEEKS GESTATION OF SNOMED Code(s): 20239913 (3) Labor, prolonged latent phase Current Visit: Yes Status: Resolved Code(s): O63.0 - PROLONGED FIRST STAGE (OF LABOR) SNOMED Code(s): 283779676 (4) Status post repeat low transverse section Current Visit: Yes Status: Acute Code(s): Z98.891 - HISTORY OF UTERINE SCAR FROM PREVIOUS SURGERY SNOMED Code(s): 611813929 Plan: 1. cont po care
--- NOTE | 2023-07-20 07:44 | P.DS ---
Providers Date of admission: 07/18/23 06:20 Expected date of discharge: 07/20/23 Attending physician: Ira Sanchez Primary care physician: Stated None - Discharge Diagnosis(es) (1) Previous section Current Visit: Yes Status: Resolved (2) 39 weeks gestation of Current Visit: Yes Status: Resolved (3) Labor, prolonged latent phase Current Visit: Yes Status: Resolved (4) Status post repeat low transverse section Current Visit: Yes Status: Acute Hospital Course: Patient presented in early labor and underwent a repeat low transverse C- section. Postoperative course was uneventful. She denies nausea, vomiting, chest pain, shortness of breath or calf pain. Patient will be discharged home postoperative day #2 in stable condition to follow-up with Dr. Sanchez in one week. Plan - Discharge Summary New Discharge Prescriptions: No Action Levothyroxine Sodium [Synthroid] 175 mcg PO DAILY Levothyroxine Sodium [Synthroid] 350 mcg PO WEEKLY Heparin Sodium,Porcine/Pf [Heparin 500 Unit/5 ml (100/ml) Flush] 500 unit IV BID Aspirin [Vazalore] 81 mg PO Discharge Medication List Levothyroxine Sodium [Synthroid] 350 mcg PO WEEKLY 11/11/21 [History] Aspirin [Vazalore] 81 mg PO 07/07/23 [History] Heparin Sodium,Porcine/Pf [Heparin 500 Unit/5 ml (100/ml) Flush] 500 unit IV BID 07/07/23 [History] Levothyroxine Sodium [Synthroid] 175 mcg PO DAILY 07/07/23 [History] Follow up Appointment(s)/Referral(s): Ira Sanchez DO [Doctor of Osteopathic Medicine] - 1 Week (PO 07/26/2023 @11:30 Am PP 08/10/2023 @9:30 Am) Discharge Disposition: HOME SELF-CARE
[2023-07-20 09:21] VITALS: BP 129/84; PULSE 105; TEMP 98.6
== END 2023-07-20 13:55 | disposition home or self-care (01) | DRG 540 ==
LOC: FBPOP 02:32 → 4FBP 06:20
PROVIDERS: ADMIT Obstetrics & Gynecology; ATTEND Obstetrics & Gynecology
PROC: 10D00Z1 Extraction of Products of Conception, Low, Open Approach (ICD-10-PCS; principal; 2023-07-18 08:30)
DX: O34.211 Maternal care for low transverse scar from previous cesarean delivery (principal); O63.0 Prolonged first stage (of labor); Z37.0 Single live birth; Z3A.39 39 weeks gestation of pregnancy; O10.92 Unspecified pre-existing hypertension complicating childbirth; Z79.890 Hormone replacement therapy; E06.3 Autoimmune thyroiditis; O99.284 Endocrine, nutritional and metabolic diseases complicating childbirth; Z86.16 Personal history of COVID-19
CPT/HCPCS: 59025; 81003; 82565; 82570; 83615; 84156; 84450; 84460; 84520; 84550; 85025; 85384; 85610; 85730; 86850; 86900; 86901; 96360; 99213

== ENCOUNTER 2024-01-21 03:43 | Emergency (ER) | payer OTHER ==
[2024-01-21 03:51] VITALS: RESP 16; TEMP 98.2
[2024-01-21] MEDS: SODIUM CHLORIDE 0.9% 500 ML 500 ML IV STA (04:37)
[2024-01-21] MEDS: HYDROmorphone 1 MG/ML 1 ML SYRINGE IVP STA (04:40)
[2024-01-21 04:46] LABS: Basophils % (A) 0 %; Eosinophils # (A) 0.2 k/uL (0-0.7); Eosinophils % (A) 3 %; HCT 39.2 % (34.0-46.0); HGB 12.8 gm/dL (11.4-16.0); Lymphocytes # (A) 2.5 k/uL (1.0-4.8); Lymphocytes % (A) 34 %; MCH 26.2 pg (25.0-35.0); MCHC 32.6 g/dL (31.0-37.0); MCV 80.6 fL (80.0-100.0); Mean Platelet Volume 7.5; Monocytes # (A) 0.2 k/uL (0-1.0); Monocytes % (A) 3 %; Neutrophils # (A) 4.3 k/uL (1.3-7.7); Neutrophils % (A) 59 %; Platelet Count 333 k/uL (150-450); RBC 4.86 m/uL (3.80-5.40); RDW 14.9 % (11.5-15.5); WBC 7.3 k/uL (3.8-10.6)
[2024-01-21 04:48] LABS: Appearance,Urine Clear (Clear); Bilirubin,Urine Negative (Negative); Blood,Urine Negative (Negative); Color,Urine Light Yellow; Glucose,Urine (UA) Negative (Negative); Ketones,Urine Negative (Negative); Leukocyte Esterase,Urine Negative (Negative); Nitrite,Urine Negative (Negative); Protein,Urine Negative (Negative); Specific Gravity,Urine 1.028 (1.001-1.035); Urobilinogen,Urine <2.0 mg/dL (<2.0)
[2024-01-21 05:11] LABS: ALT 18 U/L (4-34); AST 19 U/L (14-36); African American GFR (CKD) >90 (>60 ml/min/1.73 sqM); Albumin 4.3 g/dL (3.5-5.0); Alkaline Phosphatase 59 U/L (38-126); Amylase 42 U/L (30-110); Blood Urea Nitrogen 13 mg/dL (7-17); Calcium 9.5 mg/dL (8.4-10.2); Carbon Dioxide 23 mmol/L (22-30); Chloride 101 mmol/L (98-107); Glucose 98 mg/dL (74-99); Lipase 151 U/L (23-300); Non-African American GFR(CKD) >90 (>60 ml/min/1.73 sqM); Total Bilirubin 0.5 mg/dL (0.2-1.3); Total Protein 7.1 g/dL (6.3-8.2)
[2024-01-21 05:34] LABS: Anion Gap 15 mmol/L; Potassium 4.1 mmol/L (3.5-5.1); Sodium 139 mmol/L (137-145)
--- NOTE | 2024-01-21 05:45 | ED ---
Abdominal Pain HPI - General Chief Complaint: Abdominal Pain Stated Complaint: Abd pain Source: patient Mode of arrival: ambulatory Limitations: no limitations - History of Present Illness Initial Comments: This patient is a 23-year-old woman who states she has history of gallbladder attacks, who presents with complaint that she is having a flareup of gallbladder pain. Patient states for the past couple of days intermittently she has had some epigastric and right upper quadrant pain. She states the pain has been getting worse. She states now it is such that she has extreme pain when she takes a deep breath. She has not noted fever or chills. She has nausea but no vomiting. MD Complaint: abdominal pain Onset/Timin -: days(s) Location: RUQ, epigastric Radiation: back Migration to: no migration Severity: severe Quality: aching, sharp Consistency: constant Improves With: nothing Worsens With: eating, other (Breath) Associated Symptoms: nausea - Related Data Home Medications Medication Instructions Recorded Confirmed Levothyroxine Sodium [Synthroid] 350 mcg PO WEEKLY 11/11/21 07/18/23 Aspirin [Vazalore] 81 mg PO 07/07/23 Heparin Sodium,Porcine/Pf [Heparin 500 unit IV BID 07/07/23 07/18/23 500 Unit/5 ml (100/ml) Flush] Levothyroxine Sodium [Synthroid] 175 mcg PO DAILY 07/07/23 07/18/23 Allergies Allergy/AdvReac Type Severity Reaction Status Date / Time No Known Allergies Allergy Verified 07/18/23 02:38 Review of Systems ROS Statement: Those systems with pertinent positive or pertinent negative responses have been documented in the HPI. ROS Other: All systems not noted in ROS Statement are negative. Constitutional: Denies: fever, chills Respiratory: Denies: cough, dyspnea Cardiovascular: Denies: chest pain, palpitations, edema Gastrointestinal: Reports: abdominal pain, nausea. 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 History of Any Multi-Drug Resistant Organisms: None Reported Past Surgical History: Section, Tonsillectomy Additional Past Surgical History / Comment(s): lymph node removed Past Anesthesia/Blood Transfusion Reactions: No Reported Reaction Past Psychological History: No Psychological Hx Reported Smoking Status: Never smoker Past Alcohol Use History: None Reported Past Drug Use History: None Reported - Past Family History Father History Unknown: Yes General Exam Limitations: no limitations General appearance: alert, in no apparent distress Head exam: Present: atraumatic, normocephalic Eye exam: Present: normal appearance. Absent: scleral icterus, conjunctival injection Neck exam: Present: normal inspection Respiratory exam: Present: normal lung sounds bilaterally. Absent: respiratory distress, wheezes, rales, rhonchi, stridor, accessory muscle use Cardiovascular Exam: Present: regular rate, normal rhythm, normal heart sounds. Absent: systolic murmur, diastolic murmur, rubs, gallop GI/Abdominal exam: Present: soft, tenderness (Mild tenderness in the epigastric and right upper quadrants). Absent: distended, guarding, rebound, rigid, mass, pulsatile mass, hernia Extremities exam: Present: normal inspection, normal capillary refill. Absent: pedal edema, calf tenderness Back exam: Present: normal inspection. Absent: CVA tenderness (R), CVA tenderness (L) Neurological exam: Present: alert Skin exam: Present: warm, dry, intact, normal color. Absent: rash Course Vital Signs 01/21/24 01/21/24 01/21/24 03:49 04:45 06:00 Temperature 98.2 F Pulse Rate 85 87 82 Respiratory 16 16 16 Rate Blood Pressure 145/92 129/81 121/72 O2 Sat by Pulse 100 97 97 Oximetry Medical Decision Making - Medical Decision Making Patient is a 23-year-old woman with history of previous episodes of pain related to gallbladder. She has had good improvement with medication here. The patient's workup not suggestive of acute cholecystitis but is consistent with biliary colic. We discussed gallbladder diet and the appropriate follow-up with surgery. Discussed return parameters as well Was pt. sent in by a medical professional or institution (, PA, RESEARCH SCHOLAR, urgent care, hospital, or [facility]...) When possible be specific @ -[No] Did you speak to anyone other than the patient for history (EMS, parent, family, police, friend...)? What history was obtained from this source @ -[No] Did you review nursing and triage notes (agree or disagree)? Why? @ -[I reviewed and agree with nursing and triage notes] Were old charts reviewed (outside hosp., previous admission, EMS record, old EKG, old radiological studies, urgent care reports/EKG's, [facility] records)? Report findings @ -[No old charts were reviewed] Differential Diagnosis (chest pain, altered mental status, abdominal pain women, abdominal pain men, vaginal bleeding, weakness, fever, dyspnea, syncope, headache, dizziness, GI bleed, back pain, seizure, CVA, palpatations, mental health, musculoskeletal)? @ -[Differential Abdominal Pain Women: Appendicitis, Cholecystitis, diverticulosis, ischemic bowel, pancreatitis, hepatitis, UTI, gastroenteritis, AAA, incarcerated hernia, bowel obstruction, constipation, inflammatory bowel, hepatitis, peptic ulcer disease, splenic infarction, perforated viscus, vulvitis, ovarian torsion, PID, kidney stone, placenta abruption, this is not meant to be an all-inclusive list EKG interpreted by me (3pts min.). @ -[As above] X-rays interpreted by me (1pt min.). @ -[None done] CT interpreted by me (1pt min.). @ -[None done] U/S interpreted by me (1pt. min.). @ -[None done] What testing was considered but not performed or refused? (CT, X-rays, U/S, labs)? Why? @ -[None] What meds were considered but not given or refused? Why? @ -[None] Did you discuss the management of the patient with other professionals (professionals i.e. , PA, RESEARCH SCHOLAR, lab, RT, psych nurse, social science manager, catering service manager, teacher, u.s. revenue officer, keycase assembler)? Give summary @ -[No] Was smoking cessation discussed for >3mins.? @ -[No] Was critical care preformed (if so, how long)? @ -[No] Were there social determinants of health that impacted care today? How? (Homelessness, low income, unemployed, alcoholism, drug addiction, transportation, low edu. Level, literacy, decrease access to med. care, longterm, rehab)? @ -[No] Was there de-escalation of care discussed even if they declined (Discuss DNR or withdrawal of care, Hospice)? DNR status @ -[No] What co-morbidities impacted this encounter? (DM, HTN, Smoking, COPD, CAD, Cancer, CVA, ARF, Chemo, Hep., AIDS, mental health diagnosis, sleep apnea, morbid obesity)? @ -[None] Was patient admitted / discharged? Hospital course, mention meds given and route , prescriptions, significant lab abnormalities, going to OR and other pertinent info. @ -[As above Undiagnosed new problem with uncertain prognosis? @ -[No] Drug Therapy requiring intensive monitoring for toxicity (Heparin, Nitro, Insulin, Cardizem)? @ -[No] Were any procedures done? @ -[No] Diagnosis/symptom? @ -[Acute abdominal pain Probable biliary colic Acute, or Chronic, or Acute on Chronic? @ -[Acute Uncomplicated (without systemic symptoms) or Complicated (systemic symptoms)? @ -[Uncomplicated Side effects of treatment? @ -[No] Exacerbation, Progression, or Severe Exacerbation? @ -[No] Poses a threat to life or bodily function? How? (Chest pain, [place], MA, pneumonia, PE, COPD, DKA, ARF, appy, cholecystitis, CVA, Diverticulitis, Homicidal, Suicidal, threat to staff... and all critical care pts) @ -[No] - Lab Data Result diagrams: 01/21/24 04:34 01/21/24 04:34 Lab Results 01/21/24 01/21/24 01/21/24 Range/Units 04:34 04:34 04:34 WBC 7.3 (3.8-10.6) k/uL RBC 4.86 (3.80-5.40) m/uL Hgb 12.8 (11.4-16.0) gm/dL Hct 39.2 (34.0-46.0) % MCV 80.6 (80.0-100.0) fL MCH 26.2 (25.0-35.0) pg MCHC 32.6 (31.0-37.0) g/dL RDW 14.9 (11.5-15.5) % Plt Count 333 (150-450) k/uL MPV 7.5 Neutrophils % 59 % Lymphocytes % 34 % Monocytes % 3 % Eosinophils % 3 % Basophils % 0 % Neutrophils # 4.3 (1.3-7.7) k/uL Lymphocytes # 2.5 (1.0-4.8) k/uL Monocytes # 0.2 (0-1.0) k/uL Eosinophils # 0.2 (0-0.7) k/uL Basophils # 0.0 (0-0.2) k/uL Sodium (137-145) mmol/L Potassium (3.5-5.1) mmol/L Chloride (98-107) mmol/L Carbon Dioxide (22-30) mmol/L Anion Gap mmol/L BUN (7-17) mg/dL Creatinine (0.52-1.04) mg/dL Est GFR (CKD-EPI)AfAm (>60 ml/min/1.73 sqM) Est GFR (CKD-EPI)NonAf (>60 ml/min/1.73 sqM) Glucose (74-99) mg/dL Plasma Lactic Acid Alfredo (0.7-2.0) mmol/L Calcium (8.4-10.2) mg/dL Total Bilirubin (0.2-1.3) mg/dL AST (14-36) U/L ALT (4-34) U/L Alkaline Phosphatase (38-126) U/L Total Protein (6.3-8.2) g/dL Albumin (3.5-5.0) g/dL Amylase (30-110) U/L Lipase (23-300) U/L Urine Color Light Yellow Urine Appearance Clear (Clear) Urine pH 6.0 (5.0-8.0) Ur Specific [place] 1.028 (1.001-1.035) Urine Protein Negative (Negative) Urine Glucose (UA) Negative (Negative) Urine Ketones Negative (Negative) Urine Blood Negative (Negative) Urine Nitrite Negative (Negative) Urine Bilirubin Negative (Negative) Urine Urobilinogen <2.0 (<2.0) mg/dL Ur Leukocyte Esterase Negative (Negative) Urine HCG, Qual Not Detected (Not Detectd) 01/21/24 01/21/24 Range/Units 04:34 04:34 WBC (3.8-10.6) k/uL RBC (3.80-5.40) m/uL Hgb (11.4-16.0) gm/dL Hct (34.0-46.0) % MCV (80.0-100.0) fL MCH (25.0-35.0) pg MCHC (31.0-37.0) g/dL RDW (11.5-15.5) % Plt Count (150-450) k/uL MPV Neutrophils % % Lymphocytes % % Monocytes % % Eosinophils % % Basophils % % Neutrophils # (1.3-7.7) k/uL Lymphocytes # (1.0-4.8) k/uL Monocytes # (0-1.0) k/uL Eosinophils # (0-0.7) k/uL Basophils # (0-0.2) k/uL Sodium 139 (137-145) mmol/L Potassium 4.1 (3.5-5.1) mmol/L Chloride 101 (98-107) mmol/L Carbon Dioxide 23 (22-30) mmol/L Anion Gap 15 mmol/L BUN 13 (7-17) mg/dL Creatinine 0.64 (0.52-1.04) mg/dL Est GFR (CKD-EPI)AfAm >90 (>60 ml/min/1.73 sqM) Est GFR (CKD-EPI)NonAf >90 (>60 ml/min/1.73 sqM) Glucose 98 (74-99) mg/dL Plasma Lactic Acid Alfredo 1.6 (0.7-2.0) mmol/L Calcium 9.5 (8.4-10.2) mg/dL Total Bilirubin 0.5 (0.2-1.3) mg/dL AST 19 (14-36) U/L ALT 18 (4-34) U/L Alkaline Phosphatase 59 (38-126) U/L Total Protein 7.1 (6.3-8.2) g/dL Albumin 4.3 (3.5-5.0) g/dL Amylase 42 (30-110) U/L Lipase 151 (23-300) U/L Urine Color Urine Appearance (Clear) Urine pH (5.0-8.0) Ur Specific [place] (1.001-1.035) Urine Protein (Negative) Urine Glucose (UA) (Negative) Urine Ketones (Negative) Urine Blood (Negative) Urine Nitrite (Negative) Urine Bilirubin (Negative) Urine Urobilinogen (<2.0) mg/dL Ur Leukocyte Esterase (Negative) Urine HCG, Qual (Not Detectd) Disposition Clinical Impression: Abdominal pain Disposition: HOME SELF-CARE Condition: Good Instructions (If sedation given, give patient instructions): Biliary Colic (ED), Abdominal Pain (ED) Is patient prescribed a controlled substance at d/c from ED?: No Referrals: Sky Birch MD [Primary Care Provider] - 1-2 days Ana Sebastian DO [Doctor of Osteopathic Medicine] - 1-2 days
[2024-01-21 06:02] VITALS: BP 121/72; PULSE 82
== END 2024-01-21 06:02 | disposition home or self-care (01) ==
LOC: EC 03:43
DX: R10.9 Unspecified abdominal pain
CPT/HCPCS: 36415; 80053; 81003; 81025; 82150; 83605; 83690; 85025; 96361; 96374; 99284

== ENCOUNTER 2024-09-06 21:45 | Observation (INO) | payer BC, OTHER ==
[2024-09-06 22:41] LABS: Basophils # (A) 0.05 10*3/uL (0.00-0.10); Basophils % (A) 0.4 %; Eosinophils # (A) 0.18 10*3/uL (0.04-0.35); Eosinophils % (A) 1.6 %; HCT 39.5 % (37.2-46.3); HGB 13.4 g/dL (12.0-15.0); Lymphocytes # (A) 3.25 10*3/uL (0.90-5.00); Lymphocytes % (A) 28.1 %; MCH 27.5 pg (27.0-32.0); MCHC 33.9 g/dL (32.0-37.0); MCV 80.9 fL (80.0-97.0); Mean Platelet Volume 9.2 fL (9.5-12.2); Monocytes # (A) 0.51 10*3/uL (0.20-1.00); Monocytes % (A) 4.4 %; Neutrophils # (A) 7.53 10*3/uL (1.80-7.70); Platelet Count 320 10*3/uL (140-440); RBC 4.88 10*6/uL (4.10-5.20); RDW 14.6 % (11.5-14.5); WBC 11.58 10*3/uL (4.50-10.00)
[2024-09-06 22:51] LABS: ALT 17 U/L (4-34); AST 17 U/L (14-36); African American GFR (CKD) >90 (>60 ml/min/1.73 sqM); Albumin 4.4 g/dL (3.5-5.0); Alkaline Phosphatase 64 U/L (38-126); Anion Gap 8 mmol/L; Blood Urea Nitrogen 11 mg/dL (7-17); Calcium 10.1 mg/dL (8.4-10.2); Carbon Dioxide 25 mmol/L (22-30); Chloride 103 mmol/L (98-107); Glucose 96 mg/dL (74-99); Magnesium 1.8 mg/dL (1.6-2.3); Non-African American GFR(CKD) >90 (>60 ml/min/1.73 sqM); Potassium 3.9 mmol/L (3.5-5.1); Sodium 136 mmol/L (137-145); Total Bilirubin 0.4 mg/dL (0.2-1.3); Total Protein 7.5 g/dL (6.3-8.2)
[2024-09-06] MEDS: SODIUM CHLORIDE 0.9% 500 ML 500 ML IV STA (22:53)
[2024-09-06 22:55] LABS: INR 1.1 (<1.2); Partial Thromboplastin Time 25.3 sec (22.0-30.0); Prothrombin Time 12.1 sec (10.0-12.5)
[2024-09-07 00:43] LABS: Influenza A Not Detected (Not Detectd); Influenza B Not Detected (Not Detectd); RSV Not Detected (Not Detectd)
--- NOTE | 2024-09-07 01:16 | ED ---
General Adult HPI - General Chief complaint: Chest Pain Stated complaint: Heart paplitations, 9 wks Time Seen by Provider: 09/06/24 21:58 Source: patient Mode of arrival: ambulatory Limitations: no limitations - History of Present Illness Initial comments: 24-year-old female presenting with chief complaint of palpitations. Patient reports that for the last 2 to 3 days she has been having frequent palpitations. She feels her heart rate rapidly drop and rise again. She is feeling extremely tired. The patient is currently 9 weeks . She was having some lower abdominal discomfort. No vaginal bleeding. No fever. No recent illness. She was having some chest heaviness. 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 She did follow-up with Dr. Herrera outpatient. No lower extremity swelling. No URI-like symptoms. No nausea or vomiting. - Related Data Home Medications Medication Instructions Recorded Confirmed Levothyroxine Sodium [Synthroid] 350 mcg PO WEEKLY 11/11/21 07/18/23 Aspirin [Vazalore] 81 mg PO 07/07/23 Heparin Sodium,Porcine/Pf [Heparin 500 unit IV BID 07/07/23 07/18/23 500 Unit/5 ml (100/ml) Flush] Levothyroxine Sodium [Synthroid] 175 mcg PO DAILY 07/07/23 07/18/23 Allergies Allergy/AdvReac Type Severity Reaction Status Date / Time No Known Allergies Allergy Verified 09/06/24 21:52 Review of Systems ROS Statement: Those systems with pertinent positive or pertinent negative responses have been documented in the HPI. ROS Other: All systems not noted in ROS Statement are negative. 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 History of Any Multi-Drug Resistant Organisms: None Reported Past Surgical History: Section, Tonsillectomy Additional Past Surgical History / Comment(s): lymph node removed Past Anesthesia/Blood Transfusion Reactions: No Reported Reaction Past Psychological History: No Psychological Hx Reported Smoking Status: Never smoker Past Alcohol Use History: None Reported Past Drug Use History: None Reported - Past Family History Father History Unknown: Yes General Exam Limitations: no limitations General appearance: alert, in no apparent distress Head exam: Present: atraumatic, normocephalic, normal inspection Eye exam: Present: normal appearance, EOMI Neck exam: Present: normal inspection. Absent: meningismus Respiratory exam: Present: normal lung sounds bilaterally. Absent: respiratory distress, wheezes, rales, rhonchi, stridor Cardiovascular Exam: Present: regular rate, normal rhythm, normal heart sounds. Absent: systolic murmur, diastolic murmur, rubs, gallop, clicks Extremities exam: Absent: pedal edema Neurological exam: Present: alert, oriented X3 Psychiatric exam: Present: normal affect, normal mood Skin exam: Present: warm, dry, normal color Course Vital Signs 09/06/24 09/06/24 09/06/24 21:48 21:59 23:48 Temperature 98.6 F 98.7 F Pulse Rate 50 L 50 L 97 Respiratory 18 20 16 Rate Blood Pressure 177/89 117/56 116/59 O2 Sat by Pulse 100 100 100 Oximetry Medical Decision Making - Lab Data Result diagrams: 09/06/24 22:35 09/06/24 22:35 Lab Results 09/06/24 09/06/24 09/06/24 Range/Units 22:35 22:35 22:35 WBC 11.58 H (4.50-10.00) 10*3/uL RBC 4.88 (4.10-5.20) 10*6/uL Hgb 13.4 (12.0-15.0) g/dL Hct 39.5 (37.2-46.3) % MCV 80.9 (80.0-97.0) fL MCH 27.5 (27.0-32.0) pg MCHC 33.9 (32.0-37.0) g/dL Plt Count 320 (140-440) 10*3/uL MPV 9.2 L (9.5-12.2) fL Immature Gran % (Auto) 0.5 % Neutrophils % 65.0 % Lymphocytes % 28.1 % Monocytes % 4.4 % Eosinophils % 1.6 % Basophils % 0.4 % Immature Gran # 0.06 H (0.00-0.04) 10*3/uL Neutrophils # 7.53 (1.80-7.70) 10*3/uL Lymphocytes # 3.25 (0.90-5.00) 10*3/uL Monocytes # 0.51 (0.20-1.00) 10*3/uL Eosinophils # 0.18 (0.04-0.35) 10*3/uL Basophils # 0.05 (0.00-0.10) 10*3/uL PT 12.1 (10.0-12.5) sec INR 1.1 (<1.2) APTT 25.3 (22.0-30.0) sec Sodium 136 L (137-145) mmol/L Potassium 3.9 (3.5-5.1) mmol/L Chloride 103 (98-107) mmol/L Carbon Dioxide 25 (22-30) mmol/L Anion Gap 8 mmol/L BUN 11 (7-17) mg/dL Creatinine 0.60 (0.52-1.04) mg/dL Est GFR (CKD-EPI)AfAm >90 (>60 ml/min/1.73 sqM) Est GFR (CKD-EPI)NonAf >90 (>60 ml/min/1.73 sqM) Glucose 96 (74-99) mg/dL Calcium 10.1 (8.4-10.2) mg/dL Magnesium 1.8 (1.6-2.3) mg/dL Total Bilirubin 0.4 (0.2-1.3) mg/dL AST 17 (14-36) U/L ALT 17 (4-34) U/L Alkaline Phosphatase 64 (38-126) U/L Troponin I (0.000-0.034) ng/mL Total Protein 7.5 (6.3-8.2) g/dL Albumin 4.4 (3.5-5.0) g/dL Influenza Type A (PCR) (Not Detectd) Influenza Type B (PCR) (Not Detectd) RSV (PCR) (Not Detectd) SARS-CoV-2 (PCR) (Not Detectd) 09/06/24 09/06/24 Range/Units 22:35 23:53 WBC (4.50-10.00) 10*3/uL RBC (4.10-5.20) 10*6/uL Hgb (12.0-15.0) g/dL Hct (37.2-46.3) % MCV (80.0-97.0) fL MCH (27.0-32.0) pg MCHC (32.0-37.0) g/dL Plt Count (140-440) 10*3/uL MPV (9.5-12.2) fL Immature Gran % (Auto) % Neutrophils % % Lymphocytes % % Monocytes % % Eosinophils % % Basophils % % Immature Gran # (0.00-0.04) 10*3/uL Neutrophils # (1.80-7.70) 10*3/uL Lymphocytes # (0.90-5.00) 10*3/uL Monocytes # (0.20-1.00) 10*3/uL Eosinophils # (0.04-0.35) 10*3/uL Basophils # (0.00-0.10) 10*3/uL PT (10.0-12.5) sec INR (<1.2) APTT (22.0-30.0) sec Sodium (137-145) mmol/L Potassium (3.5-5.1) mmol/L Chloride (98-107) mmol/L Carbon Dioxide (22-30) mmol/L Anion Gap mmol/L BUN (7-17) mg/dL Creatinine (0.52-1.04) mg/dL Est GFR (CKD-EPI)AfAm (>60 ml/min/1.73 sqM) Est GFR (CKD-EPI)NonAf (>60 ml/min/1.73 sqM) Glucose (74-99) mg/dL Calcium (8.4-10.2) mg/dL Magnesium (1.6-2.3) mg/dL Total Bilirubin (0.2-1.3) mg/dL AST (14-36) U/L ALT (4-34) U/L Alkaline Phosphatase (38-126) U/L Troponin I <0.012 (0.000-0.034) ng/mL Total Protein (6.3-8.2) g/dL Albumin (3.5-5.0) g/dL Influenza Type A (PCR) Not Detected (Not Detectd) Influenza Type B (PCR) Not Detected (Not Detectd) RSV (PCR) Not Detected (Not Detectd) SARS-CoV-2 (PCR) Not Detected (Not Detectd) Disposition Referrals: Sky Birch MD [Primary Care Provider] - 1-2 days
[2024-09-07 01:43] LABS: Appearance,Urine Clear (Clear); Bilirubin,Urine Negative (Negative); Blood,Urine Negative (Negative); Color,Urine Light Yellow; Glucose,Urine (UA) Negative (Negative); Ketones,Urine Negative (Negative); Leukocyte Esterase,Urine Negative (Negative); Nitrite,Urine Negative (Negative); PH, Urine 5.5 (5.0-8.0); Protein,Urine Negative (Negative); Specific Gravity,Urine 1.023 (1.001-1.035); Urobilinogen,Urine <2.0 mg/dL (<2.0)
[2024-09-07] MEDS ORDERED: NALOXONE 0.4 MG/ML 1 ML VIAL IV PRN (02:56)
[2024-09-07] MEDS ORDERED: ACETAMINOPHEN TAB 325 MG TAB PO PRN (02:56)
[2024-09-07 03:05] LABS: T4, Free (Free Thyroxine) 1.15 ng/dL (0.78-2.19)
[2024-09-07 03:06] LABS: HCG,Quantitative Serum 83611.1 mIU/mL
--- NOTE | 2024-09-07 04:00 | US ---
EXAM: US First Trimester , Transabdominal CLINICAL HISTORY: ITS.REASON US Reason: pain TECHNIQUE: Real-time transabdominal obstetrical ultrasound of the maternal pelvis and a first trimester with image documentation. COMPARISON: No relevant prior studies available. FINDINGS: Gestation: Single viable intrauterine with an estimated gestational age of 9 weeks 1 day. heart rate is 162 bpm. Placenta/amniotic fluid: Cannot be adequately evaluated due to the early gestational age. Uterus/cervix: Unremarkable. No myometrial mass. Ovaries: Unremarkable. No mass. Free fluid: No free fluid. IMPRESSION: Single viable intrauterine with an estimated gestational age of 9 weeks 1 day
[2024-09-07] MEDS: SODIUM CHLORIDE 0.9% 1,000 ML IV SCH (04:12)
[2024-09-07 08:02] VITALS: BP 121/76; PULSE 90; RESP 15; TEMP 97.6
[2024-09-07] MEDS: MAGNESIUM SULFATE-D5W PMX 1 GM in DEXTROSE/WATER 1 100ML.BAG IVPB ONE (09:08)
[2024-09-07] MEDS: MAGNESIUM OXIDE 400 MG TAB PO SCH (09:09)
--- NOTE | 2024-09-07 10:14 | P.CRDCN ---
History of Present Illness Consult date: 09/07/24 Reason for Consult (text): Frequent PVCs History of present illness: This is a 24-year-old female with past medical history of James's thyr oiditis, morbid obesity, patient is currently 9 weeks . We have been asked to evaluate the patient for frequent PVCs. Patient presented to the hospital due to palpitations that have been going on for 2 to 3 days along with feeling tired. Her mother checked her pulseox and it showed a low heart rate and she decided to come in to the hospital. She denies fever. She does have chest heaviness. Blood pressure 121/76, heart rate 90, pulse ox 98% on room air, afebrile. She states that her patient care director has increased her thyroid medicine recently because TSH was high. Blood pressure 121/76, heart rate 90, pulse ox 98% on room air. -EKG: Sinus rhythm with bigeminy. - ultrasound: Single intrauterine estimated at 9 weeks 1 day. -Laboratory studies: WBC 11.5, hemoglobin 13.4. CMP unremarkable. TSH 8.67 with normal free T4 of 1.15. Cepheid viral panel not detected. -Home cardiac medications: Patient is on Synthroid. -Event monitor performed 03/16 - 04/14/2021 which revealed sinus tachycardia with bigeminy PVCs. -Echocardiogram obtained on this hospitalization reveals EF 55%, no obvious regional wall motion abnormality. Mild concentric LVH. No significant valvular dysfunction. No significant chamber size abnormalities. Review Of Systems: At the time of my exam: CONSTITUTIONAL: Denies fever or chills. HEENT: Denies blurred vision, vision changes, or eye pain. Denies hemoptysis CARDIOVASCULAR: Denies chest pain. Denies orthopnea. Denies PND. Reports p alpitations RESPIRATORY: Denies shortness of breath. GASTROINTESTINAL: Denies abdominal pain. Denies nausea or vomiting. HEMATOLOGIC: Denies bleeding disorders. GENITOURINARY: Denies any blood in urine. SKIN: Denies puritis. Denies rash. Physical examination: Gen: This is a morbidly obese 24-year-old female in no acute respiratory distress. VS: reviewed HEENT: Head is atraumatic, normocephalic. Pupils equal, round. Sclerae is anicteric. NECK: Supple. No JVD. LUNGS: Clear to auscultation. No wheezes or rhonchi. No intercostal retractions. HEART: Regular rate and rhythm. No murmur. ABDOMEN: Soft No tenderness. EXTREMITIES: No pedal edema. No calf tenderness. NEUROLOGICAL: Patient is awake, alert and oriented x3. Assessment: Palpitations Bigeminal PVCs History of James's thyroiditis Morbid obesity with BMI of 45 Plan: Give patient 1 g of magnesium Continue patient on magnesium oxide 4 mg daily Obtain 7-day Holter monitor prior to discharge Patient is cleared for discharge from cardiology and will follow-up in the office with Dr. Moreau in 2 weeks. Thank you kindly for this consultation. Nurse practitioner note has been reviewed, I agree with documented findings and plan of care. Patient was seen and examined. 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, pre eclampsia, HELLP syndrome, PPH, sepsis History of Any Multi-Drug Resistant Organisms: None Reported Past Surgical History: Section, Tonsillectomy Additional Past Surgical History / Comment(s): lymph node removed, c section x2 Past Anesthesia/Blood Transfusion Reactions: No Reported Reaction Past Psychological History: No Psychological Hx Reported Smoking Status: Never smoker Past Alcohol Use History: None Reported Past Drug Use History: None Reported - Past Family History Father History Unknown: Yes Medications and Allergies Home Medications Medication Instructions Recorded Confirmed Type Levothyroxine Sodium [Synthroid] 175 mcg PO DAILY 07/07/23 09/07/24 History Aspirin 81 mg PO HS 09/07/24 09/07/24 History Enoxaparin [Lovenox] 40 mg SQ HS 09/07/24 09/07/24 History Magnesium Oxide [Mag-Ox] 400 mg PO DAILY 90 Days #100 tab 09/07/24 Rx Allergies Allergy/AdvReac Type Severity Reaction Status Date / Time No Known Allergies Allergy Verified 09/07/24 08:40 Physical Exam Vitals: Vital Signs Temp Pulse Pulse Resp BP BP Pulse Ox 09/07/24 07:00 97.6 F 90 15 121/76 98 09/07/24 05:30 97.5 F L 89 16 112/69 99 09/07/24 03:43 97.7 F 89 18 118/56 97 09/06/24 23:48 97 16 116/59 100 09/06/24 21:59 98.7 F 50 L 20 117/56 100 09/06/24 21:48 98.6 F 50 L 18 177/89 100 Intake and Output 09/06/24 09/07/24 09/07/24 22:59 06:59 14:59 Other: Weight 132.449 kg 132.449 kg Results 09/06/24 22:35 09/06/24 22:35 Cardiac Enzymes 09/06/24 09/06/24 Range/Units 22:35 22:35 AST 17 (14-36) U/L Troponin I <0.012 (0.000-0.034) ng/mL Coagulation 09/06/24 Range/Units 22:35 PT 12.1 (10.0-12.5) sec APTT 25.3 (22.0-30.0) sec CBC 09/06/24 Range/Units 22:35 WBC 11.58 H (4.50-10.00) 10*3/uL RBC 4.88 (4.10-5.20) 10*6/uL Hgb 13.4 (12.0-15.0) g/dL Hct 39.5 (37.2-46.3) % Plt Count 320 (140-440) 10*3/uL Comprehensive Metabolic Panel 09/06/24 Range/Units 22:35 Sodium 136 L (137-145) mmol/L Potassium 3.9 (3.5-5.1) mmol/L Chloride 103 (98-107) mmol/L Carbon Dioxide 25 (22-30) mmol/L BUN 11 (7-17) mg/dL Creatinine 0.60 (0.52-1.04) mg/dL Glucose 96 (74-99) mg/dL Calcium 10.1 (8.4-10.2) mg/dL AST 17 (14-36) U/L ALT 17 (4-34) U/L Alkaline Phosphatase 64 (38-126) U/L Total Protein 7.5 (6.3-8.2) g/dL Albumin 4.4 (3.5-5.0) g/dL Current Medications Generic Name Dose Route Start Last Admin Trade Name Freq PRN Reason Stop Dose Admin Acetaminophen 650 mg 09/07/24 02:56 Acetaminophen Tab 325 Mg Tab PO Q6HR PRN Mild Pain or Fever > 100.5 Sodium Chloride 1,000 mls @ 75 mls/hr 09/07/24 03:00 09/07/24 04:12 Saline 0.9% IV 75 mls/hr .[id number] JOSE Administration Naloxone HCl 0.2 mg 09/07/24 02:56 Naloxone 0.4 Mg/Ml 1 Ml Vial IV Q2M PRN Opioid Reversal Intake and Output 09/06/24 09/07/24 09/07/24 22:59 06:59 14:59 Other: Weight 132.449 kg 132.449 kg 09/06/24 22:35 09/06/24 22:35
--- NOTE | 2024-09-07 11:00 | CA ---
Transthoracic Echo Report Name: Deanne Abel Age: 24 Gender: F : 2000 Exam Date: 09/07/2024 08:16 Exam Location: [facility] Ht (in): Wt (lb): Ordering Physician: Abby Ayers Attending/Referring Phys: Grant Administrator Cris Limon RDCS Procedure CPT: Indications: Palpitations, frequent PVCs Cardiac Hx: 9 weeks Technical Quality: Fair Contrast 1: Total Dose (mL): Contrast 2: Total Dose (mL): MEASUREMENTS (Male / Female) Normal Values 2D ECHO LV Diastolic Diameter PLAX 4.5 cm 4.2 - 5.9 / 3.9 - 5.3 cm LV Systolic Diameter PLAX 3.0 cm IVS Diastolic Thickness 0.9 cm 0.6 - 1.0 / 0.6 - 0.9 cm LVPW Diastolic Thickness 1.0 cm 0.6 - 1.0 / 0.6 - 0.9 cm LV Relative Wall Thickness 0.4 RV Internal Dim ED PLAX 2.6 cm LA Systolic Diameter LX 3.8 cm 3.0 - 4.0 / 2.7 - 3.8 cm LV Diastolic Volume MOD BP 101.0 cm??? 67 - 155 / 56 - 104 cm??? LV Systolic Volume MOD BP 35.8 cm??? 22 - 58 / 19 - 49 cm??? LV Ejection Fraction MOD BP 64.5 % >= 55 % LV Diastolic Volume MOD 4C 97.7 cm??? LV Systolic Volume MOD 4C 27.5 cm??? LV Ejection Fraction MOD 4C 71.8 % LV Diastolic Length 4C 7.6 cm LV Systolic Length 4C 5.7 cm LV Diastolic Volume MOD 2C 104.6 cm??? LV Systolic Volume MOD 2C 43.7 cm??? LV Ejection Fraction MOD 2C 58.2 % LV Diastolic Length 2C 7.6 cm LV Systolic Length 2C 6.2 cm LA Volume 70.1 cm??? 18 - 58 / 22 - 52 cm??? M-MODE Aortic Root Diameter MM 2.9 cm LA Systolic Diameter MM 3.4 cm LA Ao Ratio MM 1.2 AV Cusp Separation MM 2.1 cm DOPPLER AV Peak Velocity 168.6 cm/s AV Peak Gradient 11.4 mmHg MV Area PHT 2.9 cm??? Mitral E Point Velocity 88.5 cm/s Mitral A Point Velocity 74.4 cm/s Mitral E to A Ratio 1.2 MV Deceleration Time 264.2 ms TR Peak Velocity 243.8 cm/s TR Peak Gradient 23.8 mmHg PV Peak Velocity 194.2 cm/s PV Peak Gradient 15.1 mmHg FINDINGS Left Ventricle Left ventricular ejection fraction is estimated at 55-60 %. Mildly increased posterior wall thickness. Normal left ventricular systolic function with no obvious regional wall motion abnormalities. Left ventricular cavity size normal. Right Ventricle Normal right ventricular size and function. Right ventricular systolic pressure within normal limits. Right Atrium Normal right atrial size. Left Atrium Moderately increased left atrial volume. Mitral Valve Structurally normal mitral valve. Trace mitral regurgitation. No mitral stenosis. Aortic Valve Trileaflet aortic valve. No aortic valve stenosis or regurgitation. Tricuspid Valve Structurally normal tricuspid valve. Trace to mild tricuspid regurgitation. Pulmonic Valve Structurally normal pulmonic valve. Trace pulmonic regurgitation. No pulmonic stenosis. Pericardium No pericardial or pleural effusion. Aorta Normal size aortic root and proximal ascending aorta. CONCLUSIONS LVEF 55% No obvious regional wall motion abnormality Mild concentric LVH No significant valvular dysfunction No significant chamber size abnormality Previewed by: Dr Cj Moreau (Electronically Signed) Final Date: 07 September 2024 10:59
--- NOTE | 2024-09-08 02:45 | DS ---
DISCHARGE SUMMARY CHIEF COMPLAINT: Bigeminal PVCs. HISTORY OF PRESENT ILLNESS AND PHYSICAL EXAMINATION: Details of this lady's history and physical can be found in the initial workup. LABORATORY STUDIES: While she is in the hospital, she had laboratory studies, details of which can be found in the laboratory section of her chart. COURSE IN THE HOSPITAL: After admission, she was placed on bedrest, started intravenous fluids and telemetry. She was found to have hypomagnesemia. She was seen by Cardiology, who felt she could be discharged. She will go home on her usual activity, diet, and regular medications and will follow up with Cardiology and in our office. FINAL DIAGNOSIS: 1. Bigeminal premature ventricular contractions. 2. Intrauterine . 3. History of James's thyroiditis. 4. Hypothyroidism. 5. Factor V Leiden mutation. OPERATIONS: None. CONSULTATIONS: Cardiology. She has improved. MMMARLENA / CONSTANCE: [id number] /
--- NOTE | 2024-09-08 03:36 | HP ---
HISTORY AND PHYSICAL CHIEF COMPLAINT: Palpitations. HISTORY OF PRESENT ILLNESS: This is another admission for this 24-year-old white female with a history of palpitations in the past. She is . She started to notice some palpitations, came into the emergency room where she was in [facility]. She had no shortness of breath, chest pain, fever, chills, etc. She was admitted. REVIEW OF SYSTEMS: She has no other complaints or symptoms. PAST MEDICAL HISTORY, FAMILY HISTORY, AND PERSONAL AND SOCIAL HISTORIES: She has had some knee problems in the past and has a history of hypothyroidism. She has been on thyroid and vitamin. She is not allergic to any medication. Remainder of the history is unremarkable. PHYSICAL EXAMINATION: VITAL SIGNS: Normal. HEAD, EARS, EYES, NOSE, MOUTH AND THROAT: Normal. NECK: Supple. There are no neck masses. CHEST: Clear. CARDIAC EXAM: Sounds normal. ABDOMEN: Soft. EXTREMITIES: Normal. NEUROLOGIC: She is intact. ASSESSMENT: She is admitted to the hospital with diagnoses of: 1. Bigeminal premature ventricular contractions. 2. History of hypothyroidism and James's disease. 3. Factor V Leiden mutation. 4. Intrauterine . PLAN: 1. Bedrest. 2. IV fluids. 3. Telemetry. 4. Cardiology consult. MMODL / IJN: [id number] /
== END 2024-09-07 13:32 | disposition home or self-care (01) ==
LOC: EC 21:45 → 6NMEDSUR 09-07 02:58
PROVIDERS: ADMIT Family Medicine; ATTEND Family Medicine
DX: O99.411 Diseases of the circulatory system complicating pregnancy, first trimester (principal); I49.3 Ventricular premature depolarization; O99.111 Other diseases of the blood and blood-forming organs and certain disorders involving the immune mechanism complicating pregnancy, first trimester; D68.51 Activated protein C resistance; O99.281 Endocrine, nutritional and metabolic diseases complicating pregnancy, first trimester; E83.42 Hypomagnesemia; E06.3 Autoimmune thyroiditis; O99.211 Obesity complicating pregnancy, first trimester; E66.01 Morbid (severe) obesity due to excess calories; Z79.890 Hormone replacement therapy; Z79.01 Long term (current) use of anticoagulants; Z79.82 Long term (current) use of aspirin; Z11.52 Encounter for screening for COVID-19; Z11.59 Encounter for screening for other viral diseases
CPT/HCPCS: 96365; 96366; 96361 ×2; 99285; 36415; 93005 ×2; 93225; 93306; 84439; 80053; 84443; 83735; 84484; 85025; 85610; 85730; 81003; 84702; 87636; 76801; G0378; J3475